=== PATIENT | female | born 1950 | race American Indian/Alaskan Native ===

== ENCOUNTER 2021-06-01 19:34 | Inpatient (IN) | payer OTHER, SELFPAY ==
[2021-06-01 20:06] VITALS: BP 135/75; PULSE 82; RESP 22; TEMP 37.3; O2SAT 92
--- NOTE | 2021-06-01 20:14 | DI.RAD.S_ITS ---
PROCEDURE: XR CHEST 1V INDICATIONS: FEVER,COUGH TECHNIQUE: One view of the chest was acquired. COMPARISON: None. FINDINGS: Surgical changes and devices: None. Lungs and pleura: There are bilateral interstitial opacities in the lung bases. A few indistinct patchy opacities are also noted in the left base. No lobar consolidation. No pleural effusions or pneumothorax. Mediastinum: Mediastinal contours appear normal. Heart size is normal. Bones and chest wall: No suspicious bony lesions. Overlying soft tissues appear unremarkable. IMPRESSION: 1. Bilateral interstitial opacities in the lung bases and patchy opacities in the left base likely representing atypical pneumonia given clinical history. Dictated by: Shun Leach M.D. on 06/01/2021 at 20:58 Approved by: Shun Leach M.D. on 06/01/2021 at 20:59
[2021-06-01 20:47] LABS: BUN Creatinine Ratio 18.9 (6-22); Blood Urea Nitrogen 20 mg/dL (7-17); Calcium 8.4 mg/dL (8.4-10.2); Carbon Dioxide 20 mmol/L (22-32); Chloride 104 mmol/L (98-107); Glucose 263 mg/dL (80-110); HEMOLYSIS < 15 (0-50); Sodium 135 mmol/L (137-145)
[2021-06-01 20:54] LABS: COVID19 -Nasal RAPID POSITIVE (Negative)
[2021-06-01 21:41] LABS: Add Manual Diff / Slide Review NO; Basophils Absolute Auto 0 /uL (0-100); Basophils Percent Auto 0.1 % (0-2); Eosinophils Absolute Auto 0 /uL (0-450); Hematocrit 36.3 % (36-46); Hemoglobin 12.4 g/dL (12.0-16.0); Lymphocytes Absolute Auto 1100 /uL (1100-4500); Mean Corpuscular HGB Conc 34.1 % (30-36); Mean Corpuscular Hemoglobin 29.5 PG (26-34); Mean Corpuscular Volume 86.6 fL (80-100); Monocytes Absolute Auto 400 /uL (0-900); Monocytes Percent Auto 4.6 % (3-14); Neutrophils Absolute Auto 7200 /uL (1500-7000); Neutrophils Percent Auto 82.3 % (50-75); Platelet Count 228 X10^3/uL (150-400); Red Cell Distribution Width 13.8 % (11.6-14.8); White Blood Cell Count 8.8 X10^3/uL (4.5-11.0)
[2021-06-01 21:48] LABS: Creatine Kinase 552 U/L (30-135)
[2021-06-01 22:01] LABS: NT-proBNP (BNP-Adult 18+) 106 pg/mL (<125); Troponin I < 0.012 ng/mL (0.01-0.034)
[2021-06-01 22:03] LABS: CKMB % Relative Index 0.2 % (1.5-5.0); Creatine Kinase MB 1.22 ng/mL (<2.37)
[2021-06-01 23:02] VITALS: BP 140/65; PULSE 80; PULSE 86; RESP 20; RESP 28; O2SAT 94
[2021-06-01 23:30] VITALS: BP 150/70; PULSE 76; RESP 27; O2SAT 93
[2021-06-02] VITALS (20 sets, daily range): BP systolic 119–166; BP diastolic 58–82; PULSE 56–85; RESP 17–32; TEMP 36.4–37.1; O2SAT 85–94; BMI 38.3
--- NOTE | 2021-06-02 01:30 | ED.NAVMDI ---
HPI - Nausea/Vomiting/Diarrhea General Chief complaint: Nausea/Vomiting/Diarrhea Stated complaint: cough, diarrhea Time Seen by Provider: 06/02/21 00:10 Source: patient Mode of arrival: Wheelchair Limitations: no limitations History of Present Illness HPI Narrative: This is a 71-year-old female comes with complaint of cough and diarrhea. Patient has had symptoms for about 6 days with cough. She has been feeling run down. She has had fevers up to 100.4 F. Higher cough has not really been productive. She denies any chest pain. She does feel little bit short of breath. Patient denies any nausea or vomiting currently. No abdominal pain. She has had some loose stools when she is quite active but denies any black or blood. No urinary symptoms. She has not had any swelling in her extremities. Patient does have a history of insulin-dependent diabetes, hypertension, dyslipidemia. Patient denies any prior strokes or heart attacks. She does not have any known prior pulmonary issues or emphysema. She does have some allergies which include codeine and guaifenesin. She does not recall all of them. She does not recall any known COVID contacts or exposures. She is not vaccinated. Related Data Home Medications Medication Instructions Recorded Confirmed amlodipine 5 mg tablet 5 mg PO DAILY 06/02/21 06/02/21 insulin glargine 100 unit/mL (3 30 unit SUBCUT QPM 06/02/21 06/02/21 mL) subcutaneous pen (Lantus Solostar U-100 Insulin) insulin glargine 100 unit/mL (3 35 unit SUBCUT QAM 06/02/21 06/02/21 mL) subcutaneous pen (Lantus Solostar U-100 Insulin) insulin lispro 100 unit/mL 1 sliding scale dose SUBCUT 06/02/21 06/02/21 subcutaneous cartridge (Humalog USEASDIRECTD U-100 Insulin) Previous Rx's Medication Instructions Recorded losartan 100 mg tablet 100 mg PO DAILY #0 tab 06/07/21 Allergies Allergy/AdvReac Type Severity Reaction Status Date / Time alprazolam Allergy Unknown Verified 06/02/21 02:50 aspirin Allergy Unknown Verified 06/02/21 02:50 Review of Systems Review of Systems ROS Unobtainable: All systems reviewed & are unremarkable except as noted in HPI and below Patient History Medical History Diabetes type 2, uncontrolled Essential hypertension Obesity Vaccination hesitancy by patient Surgical History Hx of cholecystectomy Hx of tubal ligation Family History Mother Diabetes mellitus Father Diabetes mellitus Throat cancer Colon cancer Social History household members: family and children Smoking Status: Never smoker alcohol intake: never Smoking Status: Never smoker Substance Use Type: does not use Exam Narrative Exam Narrative: GENERAL: Alert and oriented x three, female in mild distress. HEENT: Head normocephalic, atraumatic, EOMI, pupils reactive, face symmetric, moist mucous membranes NECK: Supple, full range of motion CARDIOVASCULAR: Regular rate and rhythm without murmurs, rubs or gallops. No JVD. No swelling bilateral lower extremities. RESPIRATORY: Breath sounds equal bilaterally, no wheezes rales or rhonchi. Patient does become tachypneic during discussion. ABDOMEN: Soft, nontender. Normoactive bowel sounds all 4 quadrants. No guarding or rebound, rigidity, no mass : No CVA tenderness EXTREMITIES: Normal range of motion, no edema. Neurovascularly intact NEUROLOGICAL: Cranial nerves II through XII grossly intact. Moving all extremities SKIN: Warm, dry, no petechiae, no rashes or lesions. Initial Vital Signs Initial Vital Signs: Vital Signs Temperature 99.2 F 06/01/21 20:06 Pulse Rate 82 06/01/21 20:06 Respiratory Rate 22 06/01/21 20:06 Blood Pressure 135/75 06/01/21 20:06 Pulse Oximetry 92 06/01/21 20:06 Course Orders Ordered: Discontinued Medications Acetaminophen (Acetaminophen 325 Mg Tablet) 650 mg PO Q4HR PRN PRN Reason: Fever/Mild Pain (1-3) Albuterol (Albuterol 2.5 Mg/3 Ml Neb (Adult)) 2.5 mg INH [id number] PRN PRN Reason: Shortness Of Breath Last Admin: 06/02/21 21:18 Dose: 2.5 mg Documented by: ALTAGRACIA Amlodipine Besylate (Amlodipine 5 Mg Tablet) 5 mg PO DAILY JOSÉ MIGUEL Last Admin: 06/04/21 08:17 Dose: 5 mg Documented by: Admin: 06/03/21 09:07 Dose: 5 mg Documented by: Admin: 06/02/21 08:03 Dose: 5 mg Documented by: NAN Amlodipine Besylate (Amlodipine 5 Mg Tablet) 10 mg PO DAILY [facility] Last Admin: 06/07/21 08:27 Dose: 10 mg Documented by: Admin: 06/06/21 09:41 Dose: 10 mg Documented by: Admin: 06/05/21 09:39 Dose: 10 mg Documented by: MAURO Benzocaine (Benzocaine/Menthol 1 Gordon Pkt) 1 each PO Q4HR PRN PRN Reason: Sore Throat Last Admin: 06/03/21 02:20 Dose: 1 each Documented by: ANAYELI Dexamethasone (Dexamethasone 10 Mg/Ml Vial) 6 mg IV NOW ONE Stop: 06/02/21 01:45 Last Admin: 06/02/21 03:10 Dose: 6 mg Documented by: NIXON Dexamethasone (Dexamethasone 10 Mg/Ml Vial) 6 mg IV DAILY [facility] Last Admin: 06/07/21 08:22 Dose: Not Given Documented by: Admin: 06/06/21 09:40 Dose: 6 mg Documented by: Admin: 06/05/21 09:40 Dose: 6 mg Documented by: Admin: 06/04/21 08:17 Dose: 6 mg Documented by: Admin: 06/03/21 09:07 Dose: 6 mg Documented by: Admin: 06/02/21 08:03 Dose: 6 mg Documented by: NAN Dextrose (Dextrose 50 % In Water 25 Gm/50 Ml Syringe) 25 gm IV PRN PRN PRN Reason: Hypoglycemia Enoxaparin Sodium (Enoxaparin 40 Mg/0.4 Ml Syringe) 40 mg SUBCUT DAILY [facility] Last Admin: 06/07/21 08:27 Dose: 40 mg Documented by: Admin: 06/06/21 09:41 Dose: 40 mg Documented by: Admin: 06/05/21 09:39 Dose: 40 mg Documented by: Admin: 06/04/21 08:17 Dose: 40 mg Documented by: Admin: 06/03/21 09:06 Dose: 40 mg Documented by: Admin: 06/02/21 08:03 Dose: 40 mg Documented by: NAN Guaifenesin (Guaifenesin Er 600 Mg Tab) 600 mg PO Q12HR PRN PRN Reason: Cough Last Admin: 06/03/21 09:07 Dose: 600 mg Documented by: Admin: 06/02/21 08:03 Dose: 600 mg Documented by: NAN Remdesivir 200 mg/ Sodium (Chloride) 250 mls @ 250 mls/hr IV NOW ONE Stop: 06/02/21 01:45 Last Infusion: 06/02/21 07:30 Dose: 0 mls/hr Documented by: Admin: 06/02/21 05:07 Dose: 250 mls/hr Documented by: NIXON Remdesivir 100 mg/ Sodium (Chloride) 250 mls @ 250 mls/hr IV DAILY JOSÉ MIGUEL Stop: 06/07/21 08:59 Last Infusion: 06/06/21 18:19 Dose: 0 mls/hr Documented by: Admin: 06/06/21 09:50 Dose: 150 mls/hr Documented by: Infusion: 06/06/21 09:42 Dose: 0 mls/hr Documented by: Admin: 06/05/21 09:40 Dose: 250 mls/hr Documented by: Infusion: 06/04/21 09:27 Dose: 0 mls/hr Documented by: Admin: 06/04/21 08:17 Dose: 250 mls/hr Documented by: Infusion: 06/03/21 10:44 Dose: 0 mls/hr Documented by: Admin: 06/03/21 09:08 Dose: 250 mls/hr Documented by: MARY Azithromycin 500 mg/ Dextrose 250 mls @ 250 mls/hr IV NOW ONE Stop: 06/02/21 02:19 Last Infusion: 06/02/21 05:06 Dose: 0 mls/hr Documented by: Admin: 06/02/21 03:57 Dose: 250 mls/hr Documented by: NIXON Sodium Chloride (Normal Saline 0.9%) 250 mls @ 21 mls/hr IV Q24H PRN PRN Reason: Flush Last Infusion: 06/04/21 11:27 Dose: 0 mls/hr Documented by: Infusion: 06/04/21 08:33 Dose: 21 mls/hr Documented by: Infusion: 06/03/21 10:46 Dose: 0 mls/hr Documented by: Admin: 06/03/21 09:30 Dose: 21 mls/hr Documented by: MARY Insulin Glargine (Insulin Glargine 100 Unit/Ml 3ml Pen) 35 unit SUBCUT DAILY [facility] Last Admin: 06/02/21 06:47 Dose: 35 unit Documented by: NIXON Cosigned by: MARY Insulin Glargine (Insulin Glargine 100 Unit/Ml 3ml Pen) 30 unit SUBCUT QPM JOSÉ MIGUEL Insulin Glargine (Insulin Glargine 100 Unit/Ml 3ml Pen) 35 unit SUBCUT QPM [facility] Last Admin: 06/02/21 18:04 Dose: Not Given Documented by: MERVIN Insulin Glargine (Insulin Glargine 100 Unit/Ml 3ml Pen) 40 unit SUBCUT DAILY [facility] Insulin Glargine (Insulin Glargine 100 Unit/Ml 3ml Pen) 35 unit SUBCUT BEDTIME JOSÉ MIGUEL Insulin Glargine (Insulin Glargine 100 Unit/Ml 3ml Pen) 45 unit SUBCUT DAILY [facility] Last Admin: 06/03/21 09:05 Dose: 45 unit Documented by: MARY Cosigned by: MIMA Insulin Glargine (Insulin Glargine 100 Unit/Ml 3ml Pen) 40 unit SUBCUT BEDTIME [facility] Last Admin: 06/02/21 20:43 Dose: 40 unit Documented by: MERVIN Cosigned by: HUAN Insulin Glargine (Insulin Glargine 100 Unit/Ml 3ml Pen) 50 unit SUBCUT BID [facility] Last Admin: 06/04/21 08:18 Dose: 50 unit Documented by: MARY Cosigned by: NIXON Admin: 06/03/21 20:26 Dose: 50 unit Documented by: BROOKS Cosigned by: ILDEFONSO Insulin Glargine (Insulin Glargine 100 Unit/Ml 3ml Pen) 50 unit SUBCUT BID [facility] Last Admin: 06/05/21 09:36 Dose: 50 unit Documented by: MAURO Cosigned by: NIXON Admin: 06/04/21 20:21 Dose: 50 unit Documented by: HUAN Cosigned by: BROOKS Insulin Glargine (Insulin Glargine 100 Unit/Ml 3ml Pen) 60 unit SUBCUT BID JOSÉ MIGUEL Last Admin: 06/07/21 08:28 Dose: 60 unit Documented by: MARY Cosigned by: AUDRA Admin: 06/06/21 21:06 Dose: 60 unit Documented by: HILARIA Cosigned by: MARCOS Admin: 06/06/21 09:33 Dose: 60 unit Documented by: MAURO Cosigned by: NIXON Admin: 06/05/21 20:34 Dose: 60 unit Documented by: BROOKS Cosigned by: MARCOS Insulin Human Lispro (Insulin Lispro 100 Unit/Ml 3ml Vial) 0 unit SUBCUT ACHS [facility]; Protocol Last Admin: 06/03/21 12:41 Dose: 12 unit Documented by: MARY Cosigned by: MIMA Admin: 06/03/21 09:04 Dose: 12 unit Documented by: MARY Cosigned by: MIMA Admin: 06/02/21 20:42 Dose: 10 unit Documented by: MERVIN Cosigned by: HUAN Admin: 06/02/21 17:12 Dose: 12 unit Documented by: MERVIN Cosigned by: HUAN Admin: 06/02/21 11:47 Dose: 12 unit Documented by: NAN Cosigned by: BUTCH Admin: 06/02/21 08:04 Dose: 7 unit Documented by: NAN Lawrence by: BUTCH Insulin Human Lispro (Insulin Lispro 100 Unit/Ml 3ml Vial) 5 unit SUBCUT NOW ONE Stop: 06/02/21 11:22 Last Admin: 06/02/21 11:47 Dose: 5 unit Documented by: NAN Alexanderigned by: BUTCH Insulin Human Lispro (Insulin Lispro 100 Unit/Ml 3ml Vial) 0 unit SUBCUT ACHS [facility] Last Admin: 06/04/21 17:08 Dose: 8 unit Documented by: HUAN Cosigned by: BROOKS Admin: 06/04/21 12:00 Dose: 8 unit Documented by: MARY Cosigned by: NIXON Admin: 06/04/21 08:33 Dose: 8 unit Documented by: MARY Cosigned by: NIXON Admin: 06/03/21 20:31 Dose: Not Given Documented by: Admin: 06/03/21 16:39 Dose: 8 unit Documented by: BROOKS Cosmary by: JOSE Insulin Human Lispro (Insulin Lispro 100 Unit/Ml 3ml Vial) 0 unit SUBCUT AC JOSÉ MIGUEL; Protocol Last Admin: 06/07/21 12:51 Dose: 2 unit Documented by: MARY Cosigned by: NIXON Admin: 06/07/21 08:27 Dose: 2 unit Documented by: MARY Alexanderigned by: AUDRA Admin: 06/06/21 17:02 Dose: 12 unit Documented by: HILARIA Cosigned by: BROOKS Admin: 06/06/21 12:26 Dose: 7 unit Documented by: MAURO Cosigned by: NIXON Admin: 06/06/21 09:36 Dose: 4 unit Documented by: MAURO Cosigned by: NIXNO Admin: 06/05/21 16:48 Dose: 12 unit Documented by: BROOKS Cosigned by: MARCOS Admin: 06/05/21 12:22 Dose: 10 unit Documented by: MAURO Cosigned by: NIXON Admin: 06/05/21 09:36 Dose: 7 unit Documented by: MAURO Lawrence by: NIXON Insulin Human Lispro (Insulin Lispro 100 Unit/Ml 3ml Vial) 6 unit SUBCUT AC [facility] Last Admin: 06/07/21 12:51 Dose: 6 unit Documented by: MARY Cosigned by: NIXON Admin: 06/07/21 08:28 Dose: 6 unit Documented by: MARY Alexanderigned by: AUDRA Admin: 06/06/21 17:03 Dose: 6 unit Documented by: HILARIA Cosigned by: BROOKS Insulin Human NPH (Insulin Nph 100 Unit/Ml Vial) 5 unit SUBCUT TIDWM [facility] Last Admin: 06/02/21 08:03 Dose: Not Given Documented by: NAN Losartan Potassium (Losartan 50 Mg Tablet) 100 mg PO BID [facility] Losartan Potassium (Losartan 50 Mg Tablet) 100 mg PO DAILY [facility] Last Admin: 06/07/21 08:27 Dose: 100 mg Documented by: Admin: 06/06/21 09:41 Dose: 100 mg Documented by: Admin: 06/05/21 09:39 Dose: 100 mg Documented by: Admin: 06/04/21 08:18 Dose: 100 mg Documented by: MARY Ondansetron HCl (Ondansetron 4 Mg/2 Ml Inj) 4 mg IV Q6HR PRN PRN Reason: Nausea And Vomiting Sodium Chloride (Sodium Chloride 0.9% Flush) 10 ml IV PRN PRN PRN Reason: Flush Sodium Chloride (Sodium Chloride 0.9% Flush) 10 ml IV BID JOSÉ MIGUEL [facility] Admin: 06/07/21 08:22 Dose: Not Given Documented by: Admin: 06/06/21 21:08 Dose: Not Given Documented by: Admin: 06/06/21 09:41 Dose: 10 ml Documented by: Admin: 06/05/21 20:35 Dose: 10 ml Documented by: Admin: 06/05/21 09:40 Dose: 10 ml Documented by: Admin: 06/04/21 20:20 Dose: 10 ml Documented by: Admin: 06/04/21 08:17 Dose: 10 ml Documented by: Admin: 06/03/21 20:28 Dose: 10 ml Documented by: Admin: 06/03/21 09:08 Dose: 10 ml Documented by: Admin: 06/02/21 20:45 Dose: 10 ml Documented by: Admin: 06/02/21 08:05 Dose: 10 ml Documented by: NAN Vital Signs Vital signs: Vital Signs - 8 hr 06/01/21 20:06 06/01/21 23:02 Temperature 99.2 F Pulse Rate 82 80 Respiratory Rate 22 20 Blood Pressure 135/75 140/65 Pulse Oximetry 92 94 MDM - Nausea/Vomiting/Diarrhea Lab Data Result diagrams: 06/03/21 06:43 06/07/21 04:42 Labs: Lab Results 06/01/21 06/01/21 06/01/21 Range/Units 20:30 20:30 20:30 WBC 8.8 (4.5-11.0) X10^3/uL RBC 4.20 (4.0-5.2) X10^6/uL Hgb 12.4 (12.0-16.0) g/dL Hct 36.3 (36-46) % MCV 86.6 (80-100) fL MCH 29.5 (26-34) PG MCHC 34.1 (30-36) % RDW 13.8 (11.6-14.8) % Plt Count 228 (150-400) X10^3/uL Neut % (Auto) 82.3 H (50-75) % Lymph % (Auto) 13.0 L (25-40) % [place] % (Auto) 4.6 (3-14) % Eos % (Auto) 0.0 L (2-4) % Baso % (Auto) 0.1 (0-2) % Neut # (Auto) 7200 H (2578-2183) /uL Lymph # (Auto) 1100 (1660-6833) /uL [place] # (Auto) 400 (0-900) /uL Eos # (Auto) 0 (0-450) /uL Baso # (Auto) 0 (0-100) /uL Sodium 135 L (137-145) mmol/L Potassium 4.0 (3.4-5.1) mmol/L Chloride 104 (98-107) mmol/L Carbon Dioxide 20 L (22-32) mmol/L BUN 20 H (7-17) mg/dL Creatinine 1.06 H (0.52-1.04) mg/dL Estimated GFR 51.0 L (>60) mL/min BUN/Creatinine Ratio 18.9 (6-22) Glucose 263 H (80-110) mg/dL Hemoglobin A1c (4.0-6.0) % Calcium 8.4 (8.4-10.2) mg/dL Total Creatine Kinase 552 H (30-135) U/L CK-MB (CK-2) 1.22 (<2.37) ng/mL CK-MB (CK-2) Rel Index 0.2 L (1.5-5.0) % Troponin I < 0.012 (0.01-0.034) ng/mL NT-Pro-B Natriuret Pep 106 (<125) pg/mL Procalcitonin (<0.5) ng/mL SARS-CoV-2 (PCR) (Negative) 06/01/21 06/01/21 06/01/21 Range/Units 20:30 20:35 20:45 WBC (4.5-11.0) X10^3/uL RBC (4.0-5.2) X10^6/uL Hgb (12.0-16.0) g/dL Hct (36-46) % MCV (80-100) fL MCH (26-34) PG MCHC (30-36) % RDW (11.6-14.8) % Plt Count (150-400) X10^3/uL Neut % (Auto) (50-75) % Lymph % (Auto) (25-40) % [place] % (Auto) (3-14) % Eos % (Auto) (2-4) % Baso % (Auto) (0-2) % Neut # (Auto) (6903-0058) /uL Lymph # (Auto) (5479-8691) /uL [place] # (Auto) (0-900) /uL Eos # (Auto) (0-450) /uL Baso # (Auto) (0-100) /uL Sodium (137-145) mmol/L Potassium (3.4-5.1) mmol/L Chloride (98-107) mmol/L Carbon Dioxide (22-32) mmol/L BUN (7-17) mg/dL Creatinine (0.52-1.04) mg/dL Estimated GFR (>60) mL/min BUN/Creatinine Ratio (6-22) Glucose (80-110) mg/dL Hemoglobin A1c 9.4 H (4.0-6.0) % Calcium (8.4-10.2) mg/dL Total Creatine Kinase (30-135) U/L CK-MB (CK-2) (<2.37) ng/mL CK-MB (CK-2) Rel Index (1.5-5.0) % Troponin I (0.01-0.034) ng/mL NT-Pro-B Natriuret Pep (<125) pg/mL Procalcitonin 0.14 (<0.5) ng/mL SARS-CoV-2 (PCR) Positive H (Negative) Imaging Data Chest x-ray: Radiologist's Impression: [address] [id number] ReportSigned Patient: Shonda West MMR#: [id number]: [id number]:[id number]/Sex: 71 / FDate of Service: 06/01/21Loc: EDAccession Number: [id number] Procedure: XR chest 1V Ordering Provider: Ana Bal D.O. PROCEDURE: XR CHEST 1V INDICATIONS: FEVER,COUGH TECHNIQUE: One view of the chest was acquired. COMPARISON: None. FINDINGS: Surgical changes and devices: None. Lungs and pleura: There are bilateral interstitial opacities in the lung bases. A few indistinct patchy opacities are also noted in the left base. No lobar consolidation. No pleural effusions or pneumothorax. Mediastinum: Mediastinal contours appear normal. Heart size is normal. Bones and chest wall: No suspicious bony lesions. Overlying soft tissues appear unremarkable. IMPRESSION: 1. Bilateral interstitial opacities in the lung bases and patchy opacities in the left base likely representing atypical pneumonia given clinical history. Dictated by: Shun Leach M.D. on 06/01/2021 at 20:58 Approved by: Shun Leach M.D. on 06/01/2021 at 20:59 ECG Data Attestation: I personally reviewed and interpreted this ECG as follows: Prior ECG tracings: not available for review MDM Narrative Medical decision making narrative: This is a 71-year-old female with multiple comorbidities who is COVID positive with changes on chest x-ray and is requiring oxygen at 3 L nasal cannula. Case discussed with hospitalist, remdesivir and dexamethasone ordered. Patient does appear somewhat dry on exam but hospitalist request that we hold fluids at this time which is typical with COVID patients. I did discuss patient's pulsed status. She has not given this much thought in the past she is unsure if she would wish for full code, limited intervention or somewhere in between. She is going to contemplate this and discuss with her family. Discussed with hospitalist who accepts. Discharge Plan Departure Patient Disposition: Admitted As Inpatient Clinical Impression: Pneumonia due to COVID-19 virus, Hypoxemia Admit Date/Time: 06/02/21 02:04 Admit Provider: Louise Camargo
[2021-06-02 02:45] LABS: Hemoglobin A1C% w Est Avg Glu 9.4 % (4.0-6.0)
[2021-06-02 02:52] LABS: HCO3 ABG 21 mmol/L (22-26); Oxygen Saturation ABG 94 % (95-100); PCO2 ABG 29.8 mmHg (35-45); PO2 ABG 65 mmHg (80-100); TCO2 ABG 22 mmol/L (21-31); pH ABG 7.46 (7.35-7.45)
[2021-06-02 02:53] LABS: Fractionated Inspired Oxygen 32
[2021-06-02 02:56] LABS: Procalcitonin 0.14 ng/mL (<0.5)
--- NOTE | 2021-06-02 03:08 | P.HP_ITS ---
History of Present Illness History of Present Illness Date Patient Seen: 06/02/21 Time Patient Seen: 03:11 Chief complaint: cough, diarrhea Narrative: Shonda West is a 71 y.o. female with diabetes, hypertension, who initially presented to the ED for diarrhea. She states it started 6 days ago, started to consume Pepto-Bismal and stated her stool turned black. Per nursing's review of systems with the patient, she told them she had been short of breath prompting a COVID PCR which turned out to be positive. She denes fever, sweats or chills, she does endorse cough and shortness of breath. She states she masks whenever she is outsdide of her home, has not taken the vaccine because she developed shingles and Garcia's Palsey after having an influenza vaccine last year. She does endorse a cough, denies chest pain, abdominal pain, dysurea or constipation. In the ED, she was administered oxygen, and is currently on 3 liters with her oxygen dropping as far as 85% and currently is 92%. Chest xray report indicated Bilateral interstitial opacities in the lung bases and patchy opacities in the left base likely representing atypical pneumonia given clinical history.. On presentation to the ED, her temp was 99.2, currently is 98.7, blood pressure is 156/82, heart rate 80, respiratory rate 22, she weighs 90.2 kg with a BMI of 30.3. WBC is unremarkable, she has a platelet count of 228, shows a normal pH of 7.46 but has a PO2 of 65 and ABG O2 oxygen saturation 94%. Sodium is 135, potassium 4.0, chloride 104, bicarb 20, BUN 20, creatinine 1.06, with a GFR of 51, glucose is 263, hemoglobin A1c is 9.4, calcium 8.4, total creatinine kinase is 552, troponin, procalcitonin, and proBNP are all within normal limits. COVID 19 PCR is positive. Patient History Medical History (Updated 06/02/21 @ 04:22 by BELGICA Connell) Diabetes type 2, uncontrolled Essential hypertension Obesity Vaccination hesitancy by patient Surgical History (Updated 06/02/21 @ 04:21 by BELGICA Connell) Hx of cholecystectomy Hx of tubal ligation Family & Social History Family History Mother Diabetes mellitus Father Diabetes mellitus Throat cancer Colon cancer Social History: household members family,children Prior Living Arrangements House Safety & Behavioral: Feels Safe in Current Yes Environment Suicidal Ideation Description None Suicide Plan Description No Plan Tobacco & Substance use: Smoking Status Never smoker alcohol intake never Substance Use Type does not use Meds Home Medications and Allergies Home Medications Medication Instructions Recorded Confirmed Type amlodipine 5 mg tablet 5 mg PO DAILY 06/02/21 06/02/21 History insulin glargine 100 unit/mL (3 30 unit SUBCUT QPM 06/02/21 06/02/21 History mL) subcutaneous pen (Lantus Solostar U-100 Insulin) insulin glargine 100 unit/mL (3 35 unit SUBCUT QAM 06/02/21 06/02/21 History mL) subcutaneous pen (Lantus Solostar U-100 Insulin) insulin lispro 100 unit/mL 1 sliding scale dose SUBCUT 06/02/21 06/02/21 History subcutaneous cartridge (Humalog USEASDIRECTD U-100 Insulin) losartan 100 mg tablet 100 mg PO BID 06/02/21 06/02/21 History Allergies Allergy/AdvReac Type Severity Reaction Status Date / Time alprazolam Allergy Unknown Verified 06/02/21 02:50 aspirin Allergy Unknown Verified 06/02/21 02:50 Review of Systems Review of Systems ROS: Yes All systems reviewed with the patient and are negative except as otherwise documented Exam Vital Signs (past 8 hours): - 06/01/21 20:06 06/01/21 23:02 06/01/21 23:30 Temperature 99.2 F Pulse Rate 82 86 76 Respiratory Rate 22 28 H 27 H Blood Pressure 135/75 140/65 150/70 H Pulse Oximetry 92 94 93 06/02/21 00:00 06/02/21 00:47 06/02/21 00:49 Temperature Pulse Rate 78 85 Respiratory Rate 27 H 32 H Blood Pressure 151/72 H 166/72 H Pulse Oximetry 92 85 L 90 L 06/02/21 01:00 06/02/21 01:30 06/02/21 02:00 Temperature Pulse Rate 77 77 80 Respiratory Rate 31 H 28 H 30 H Blood Pressure 156/70 H Pulse Oximetry 89 L 92 92 06/02/21 02:15 Temperature 98.7 F Pulse Rate 80 Respiratory Rate 22 Blood Pressure 156/82 H Pulse Oximetry 92 Oxygen Delivery Method Nasal Cannula Oxygen Flow Rate 3 Narrative Exam Narrative: Gen: Alert, oriented, obese 71 y.o. female, sleeping HEENT: normocephalic, atraumatic, conjunctiva clear, sclera non-icteric, oral mucosa pink and moist Neck: supple, full ROM, no JVD, trachea is midline Resp: Mildly labored breathing when speaking, Lungs CTA, CV: RRR, no murmur or rubs Abd: soft, non-tender, normoactive BTs Skin: no lesions or rashes, dry and intact Neuro: Alert and oriented X 4 w/no focal deficits. Speech clear and coherent. Extremities: moves all 4 extremities, is ambulatory, negative Jeramie?s sign Psyche: normal mood and affect. Objective Labs Result Diagrams: 06/01/21 20:30 06/01/21 20:30 Labs: Laboratory Results - last 24 hr 06/01/21 06/01/21 06/01/21 20:30 20:30 20:30 WBC 8.8 RBC 4.20 Hgb 12.4 Hct 36.3 MCV 86.6 MCH 29.5 MCHC 34.1 RDW 13.8 Plt Count 228 Neut % (Auto) 82.3 H Lymph % (Auto) 13.0 L [place] % (Auto) 4.6 Eos % (Auto) 0.0 L Baso % (Auto) 0.1 Neut # (Auto) 7200 H Lymph # (Auto) 1100 [place] # (Auto) 400 Eos # (Auto) 0 Baso # (Auto) 0 ABG pH ABG pCO2 ABG pO2 ABG HCO3 ABG Total CO2 ABG O2 Saturation ABG Base Excess FiO2 Sodium 135 L Potassium 4.0 Chloride 104 Carbon Dioxide 20 L BUN 20 H Creatinine 1.06 H Estimated GFR 51.0 L BUN/Creatinine Ratio 18.9 Glucose 263 H Hemoglobin A1c Calcium 8.4 Total Creatine Kinase 552 H CK-MB (CK-2) 1.22 CK-MB (CK-2) Rel Index 0.2 L Troponin I < 0.012 NT-Pro-B Natriuret Pep 106 Procalcitonin SARS-CoV-2 (PCR) 06/01/21 06/01/21 06/01/21 20:30 20:35 20:45 WBC RBC Hgb Hct MCV MCH MCHC RDW Plt Count Neut % (Auto) Lymph % (Auto) [place] % (Auto) Eos % (Auto) Baso % (Auto) Neut # (Auto) Lymph # (Auto) [place] # (Auto) Eos # (Auto) Baso # (Auto) ABG pH ABG pCO2 ABG pO2 ABG HCO3 ABG Total CO2 ABG O2 Saturation ABG Base Excess FiO2 Sodium Potassium Chloride Carbon Dioxide BUN Creatinine Estimated GFR BUN/Creatinine Ratio Glucose Hemoglobin A1c 9.4 H Calcium Total Creatine Kinase CK-MB (CK-2) CK-MB (CK-2) Rel Index Troponin I NT-Pro-B Natriuret Pep Procalcitonin 0.14 SARS-CoV-2 (PCR) Positive H 06/02/21 02:20 WBC RBC Hgb Hct MCV MCH MCHC RDW Plt Count Neut % (Auto) Lymph % (Auto) [place] % (Auto) Eos % (Auto) Baso % (Auto) Neut # (Auto) Lymph # (Auto) [place] # (Auto) Eos # (Auto) Baso # (Auto) ABG pH 7.46 H ABG pCO2 29.8 L ABG pO2 65 L ABG HCO3 21 L ABG Total CO2 22 ABG O2 Saturation 94 L ABG Base Excess -3.0 L FiO2 32 Sodium Potassium Chloride Carbon Dioxide BUN Creatinine Estimated GFR BUN/Creatinine Ratio Glucose Hemoglobin A1c Calcium Total Creatine Kinase CK-MB (CK-2) CK-MB (CK-2) Rel Index Troponin I NT-Pro-B Natriuret Pep Procalcitonin SARS-CoV-2 (PCR) Assessment & Plan Assessment & Plan narrative: Shonda West is a 71 y.o. female with diabetes type 2, hypertension, essential hypertension presented for diarrhea was found in the ED to have COVID-19, mildly hypoxic on admission will be admitted for further treatment and management of COVID-19 and initial workup of her complaint of diarrhea. 1. Mild Hypoxia, acute in the setting of COVID-19 Pneumonia, present on admission * She was given IV Remdesvir 200 mg in the ED and IV dexamethasone 6 mg * She will be initiated on Remdesvir 100 mg daily for 4 more days and IV dexamethasone will also be continued. * She will remain on supplemental O2 until her saturations reach a goal of 97% * She is housed in a unit room, and if she requires aerosolizing treatments, will require a negative pressure room. * She is initiated on IV Azithromycin to prevent development of a bacterial pneumonia superimposed on the COVID-19 virus 2. Diarrhea, acute * C. difficile and stool O and P ordered and pending * Room will need to be contact precautions 3. Diabetes type 2 poor control with an A1c of 9.4 * Patient uses basal insulin glargine 35 units in the am and 30 units in the pm and this will be continued * Medium dose correctional insulin * I will add 5 units of prandial insulin as her blood sugars are likely to be elevated above baseline due to dexamethasone * Carb control diet 4. Essential hypertension, appears to be poorly controlled * Patient normally takes amlodipine 5 mg daily. * Patient is written for losartan 100 mg bid by her PCP and is a recent Rx. This will need to be confirmed and have requested Pharmacy consult regarding this. VTE prophylaxis: Wells risk score: 4.5 Enoxaparin 40 mg subQ daily Consults: none Patient is admitted under inpatient status with expected length of stay greater than 2 midnights due to severity of presenting symptoms, risk of adverse event, and complexity of treatment plan. FEN: saline lock, carb controlled diet, CMP and magnesium in the am. Dispo: Unknown at this time Code Status: Full Code as discussed with patient daughter Meghan Blanco is her surrogate and POA COVID-19 COVID-19 status: Positive Result date/Date tested (Pos, Neg/Pending): 06/02/21 Scores Wells' Criteria for PE Clinical signs and symptoms of DVT: Yes PE is #1 Dx or equally likely: No Heart rate > 100: Yes Immobilization at least 3 days or surg in previous 4 weeks: No History of PE or DVT: No Hemoptysis: No Malignancy w/Treatment within 6 months or palliative: No Wells' PE Score total: 4.5 Quality VTE Deep Vein Thrombosis/Pulmonary Embolism Present on Admission: No MIPS - Admit I confirm the patient?s Advance Care Plan is present, Code status is documented, Surrogate decision maker is in patient?s record [If Yes, STOP here]: Yes
[2021-06-02] MEDS: DEXAMETHASONE 10 MG/ML VIAL 6 MG IV ×2 (03:10→08:03)
--- NOTE | 2021-06-02 03:30 | PC.NURSE ---
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
[2021-06-02] MEDS: AZITHROMYCIN 500 MG in DEXTROSE 5% IN WATER 250 ML IV (03:57)
[2021-06-02 04:39] LABS: Clostridium Difficile Tox PCR Negative for C. diff (Negative)
[2021-06-02] MEDS: REMDESIVIR 200 MG in SODIUM CHLORIDE 0.9% 210 ML 250 ML IV (05:07)
--- NOTE | 2021-06-02 06:34 | PC.NURSE ---
Addendum entered by Kassandra Fraire R.N. 06/02/21 07:11: Up to chair @ 0700, reporting feeling much less SOB after good sleep. IV SL. CBG 337, lantus given. Original Note: Assumed care of Pt @ 0300, continues with nonproductive cough, 3L o2, with significant SOB with exertion. Recovers without incident, discussed used of BSC vs ambulation to BR to conserve effort and allow for some reserve. Pt is having watery stools, bried in place for incont. miles with forceful coughing Afebrile.
[2021-06-02] MEDS: INSULIN GLARGINE 100 UNIT/ML 3ML PEN 35 UNIT SUBCUT (06:47)
[2021-06-02 07:20] LABS: Add Manual Diff / Slide Review NO; Basophils Absolute Auto 0 /uL (0-100); Basophils Percent Auto 0.2 % (0-2); Eosinophils Absolute Auto 0 /uL (0-450); Hematocrit 32.8 % (36-46); Hemoglobin 11.2 g/dL (12.0-16.0); Lymphocytes Absolute Auto 800 /uL (1100-4500); Lymphocytes Percent Auto 9.4 % (25-40); Mean Corpuscular HGB Conc 34.1 % (30-36); Mean Corpuscular Hemoglobin 29.4 PG (26-34); Mean Corpuscular Volume 86.2 fL (80-100); Monocytes Absolute Auto 300 /uL (0-900); Neutrophils Absolute Auto 7200 /uL (1500-7000); Neutrophils Percent Auto 86.4 % (50-75); Platelet Count 223 X10^3/uL (150-400); Red Blood Cell Count 3.81 X10^6/uL (4.0-5.2); White Blood Cell Count 8.3 X10^3/uL (4.5-11.0)
[2021-06-02 07:38] LABS: Alanine Aminotransferase 33 IU/L (<35); Albumin 3.4 g/dL (3.5-5.0); Alkaline Phosphatase 63 U/L (38-126); Aspartate Aminotransferase 63 IU/L (14-36); BUN Creatinine Ratio 22.1 (6-22); Bilirubin Total 0.6 mg/dL (0.2-1.3); Bilirubin Unconjugated 0.3 mg/dL (0.0-1.1); Blood Urea Nitrogen 21 mg/dL (7-17); Carbon Dioxide 19 mmol/L (22-32); Chloride 103 mmol/L (98-107); Estimated Glomerular Filt Rate 57.8 mL/min (>60); Globulin 3.3 g/dL (1.7-4.1); Glucose 352 mg/dL (80-110); HEMOLYSIS < 15 (0-50); Potassium 3.9 mmol/L (3.4-5.1); Sodium 132 mmol/L (137-145); Total Protein 6.7 g/dL (6.3-8.2)
[2021-06-02] MEDS: AMLODIPINE 5 MG TABLET PO (08:03)
[2021-06-02] MEDS: ENOXAPARIN 40 MG/0.4 ML SYRINGE SUBCUT (08:03)
[2021-06-02] MEDS: guaiFENesin ER 600 MG TAB PO (08:03)
[2021-06-02] MEDS: INSULIN LISPRO 100 UNIT/ML 3ML VIAL SUBCUT ×5 (08:04→20:42)
[2021-06-02] MEDS: SODIUM CHLORIDE 0.9% FLUSH 10 ML IV ×2 (08:05→20:45)
--- NOTE | 2021-06-02 10:17 | PC.NURSE ---
Addendum entered by Pari Whipple R.N. 06/02/21 11:28: Patients blood glucose 418, Dr. Medeiros aware,orders received. Original Note: Patient alert, oriented denies pain, c/o shortness of breath with activity. LS diminished throughout and tight. Sats on 5L 93%, patient has non productive cough. Patient assisted back to bed and is proning.
--- NOTE | 2021-06-02 13:17 | CM.DANOTE ---
Patient is a 71 yo female who was admitted on 06/02/21 today for Cough/Diarrhea. Pt has [facility] for insurance and her PCP is not listed. EMR was reviewed. Per MD, pt admitted with COVID pneumonia and not vaccinated for COVID and currently on 3L oxygen and not stable for d/c yet today. Per RN, pt fatigues easily and increased to 5L O2 but was able to shower with staff assist and has been proning. SW called pt on room phone due to COVID + precautions and explained role. Pt confirms that she lives at home with her adult Dtr Meghan in [place] and is independent with ADL's at baseline and does not use DME for ambulation and drives herself. Pt confirms with COVID and diarrhea, she has needed walker for getting to the bathroom. Pt denies anyone else in the home but states Dtr is available to assist and provide transport home and states her Dtr is not feeling sick or showing any signs of COVID at this time. Pt does not anticipate any needs at d/c and preference is to d/c home with Dtr when medically stable. Plan: SW to follow for possible d/c home with Dtr assist when stable pending progress, mobility, and oxygen needs. SW to follow for any other identified d/c planning needs. YESENIA Tomas Discharge Planning/Care Management CM Discharge Assessment Start: 06/02/21 13:12 Freq: Status: Active Protocol: Document 06/02/21 13:12 BF (Rec: 06/02/21 13:14 BF [id number]) Discharge Planning Assessment Assigned Club Car Attendant YESENIA Bettencourt DPOA/Assigned Designee Name Dtfareed Christianson Contact Information [phone] Advance Directives? No Advance Directives on File No History Provided By Patient,Medical Record Has Patient been admitted in last 30 No days? Prior Living Arrangements House Household Members family,children Type of transporation used prior to Drives own vehicle admit Independent with ADL's Yes Is patient alert and oriented? Yes Caregiver for Another No DME Already Rented / Owned FWW / Walker Comment Pending pt progress to determine d/c needs Barriers to Discharge No Discharge Plan Home Transportation Arrangement Dtr can likely provide transport at d/c Additional Comment Pending pt's progress and possible PT eval when appropriate if below baseline Review Status In Process Please Provide Date Initial DC 06/02/21 Assessment Was Performed Next Review Type Continued Stay Review
[2021-06-02] MEDS: INSULIN GLARGINE 100 UNIT/ML 3ML PEN 40 UNIT SUBCUT (20:43)
[2021-06-02] MEDS: ALBUTEROL 2.5 MG/3 ML NEB (ADULT) INH (21:18)
[2021-06-03] VITALS (8 sets, daily range): BP systolic 129–159; BP diastolic 62–67; PULSE 51–63; RESP 17–20; TEMP 36.2–36.4; O2SAT 89–96
[2021-06-03] MEDS: BENZOCAINE/MENTHOL 1 LOZ PKT 1 EACH PO (02:20)
--- NOTE | 2021-06-03 06:05 | PC.NURSE ---
Print Room Worker Note-Patient slept on Lt side from midnight-0200, SpO2 90-96%, slept on Rt side [id number], sats same. For the rest of the night, she wanted to be on her back with HOB 30 degrees, SpO2 88-93%, RR 20s, short of breath while ambulating to BR, crackles in bases. Cepacol given for cough. SB 50s. Loose stools decreasing.
[2021-06-03 06:53] LABS: Hematocrit 32.7 % (36-46); Mean Corpuscular HGB Conc 33.5 % (30-36); Mean Corpuscular Hemoglobin 28.8 PG (26-34); Platelet Count 270 X10^3/uL (150-400); Red Blood Cell Count 3.81 X10^6/uL (4.0-5.2); Red Cell Distribution Width 13.8 % (11.6-14.8); White Blood Cell Count 8.5 X10^3/uL (4.5-11.0)
[2021-06-03 07:05] LABS: Alanine Aminotransferase 37 IU/L (<35); Albumin Globulin Ratio 0.9 (1.0-2.8); Alkaline Phosphatase 69 U/L (38-126); Aspartate Aminotransferase 57 IU/L (14-36); BUN Creatinine Ratio 30.5 (6-22); Bilirubin Total 0.5 mg/dL (0.2-1.3); Bilirubin Unconjugated 0.2 mg/dL (0.0-1.1); Blood Urea Nitrogen 25 mg/dL (7-17); Calcium 8.2 mg/dL (8.4-10.2); Carbon Dioxide 21 mmol/L (22-32); Chloride 102 mmol/L (98-107); Estimated Glomerular Filt Rate > 60.0 mL/min (>60); Globulin 3.2 g/dL (1.7-4.1); Glucose 402 mg/dL (80-110); HEMOLYSIS < 15 (0-50); Potassium 3.6 mmol/L (3.4-5.1); Sodium 131 mmol/L (137-145); Total Protein 6.2 g/dL (6.3-8.2)
[2021-06-03] MEDS: INSULIN LISPRO 100 UNIT/ML 3ML VIAL SUBCUT ×3 (09:04→16:39)
[2021-06-03] MEDS: INSULIN GLARGINE 100 UNIT/ML 3ML PEN 45 UNIT SUBCUT (09:05)
[2021-06-03] MEDS: ENOXAPARIN 40 MG/0.4 ML SYRINGE SUBCUT (09:06)
[2021-06-03] MEDS: AMLODIPINE 5 MG TABLET PO (09:07)
[2021-06-03] MEDS: guaiFENesin ER 600 MG TAB PO (09:07)
[2021-06-03] MEDS: DEXAMETHASONE 10 MG/ML VIAL 6 MG IV (09:07)
[2021-06-03] MEDS: REMDESIVIR 100 MG in SODIUM CHLORIDE 0.9% 230 ML 250 ML IV (09:08)
[2021-06-03] MEDS: SODIUM CHLORIDE 0.9% FLUSH 10 ML IV ×2 (09:08→20:28)
[2021-06-03] MEDS: SODIUM CHLORIDE 0.9% 250 ML 21 ML IV (09:30)
--- NOTE | 2021-06-03 15:50 | PM.PN.1 ---
Subjective Subjective Interval history: The patient is a 71-year-old female admitted to the hospital with acute respiratory failure secondary to COVID pneumonia. Since admission to the hospital the patient is requiring increasing oxygen. She is now on 5 L of oxygen to keep her saturation at 92% or above. She has a mild nonproductive cough. She denies any nausea vomiting or diarrhea. Overall she feels like she is making some improvement Exam Vital Signs (past 8 hours): - 06/03/21 08:00 06/03/21 10:18 06/03/21 12:00 Temperature 97.6 F 97.5 F L Pulse Rate 52 L 51 L 56 L Respiratory Rate 19 20 19 Blood Pressure 143/63 H 159/67 H Pulse Oximetry 91 92 92 06/03/21 13:54 Temperature Pulse Rate 53 L Respiratory Rate 18 Blood Pressure Pulse Oximetry 95 Oxygen Delivery Method Nasal Cannula Oxygen Flow Rate 4 Narrative Exam Narrative: Pleasant female sitting in a chair in no obvious distress She is on 5 L of oxygen Chest Other: Lungs: Decreased breath sounds with scattered crackles Cardio Other: Cardiac exam: Regular rate rhythm normal S1-S2 with a 2/6 systolic ejection murmur GI Other: Abdomen: Soft nontender nondistended Extrem Other: Extremities: No edema Objective Labs Result Diagrams: 06/03/21 06:43 06/03/21 06:43 Labs: Laboratory Results - last 24 hr 06/03/21 06/03/21 06:43 06:43 WBC 8.5 RBC 3.81 L Hgb 11.0 L Hct 32.7 L MCV 86.0 MCH 28.8 MCHC 33.5 RDW 13.8 Plt Count 270 Sodium 131 L Potassium 3.6 Chloride 102 Carbon Dioxide 21 L BUN 25 H Creatinine 0.82 Estimated GFR > 60.0 BUN/Creatinine Ratio 30.5 H Glucose 402 H Calcium 8.2 L Total Bilirubin 0.5 Conjugated Bilirubin 0.0 Unconjugated Bilirubin 0.2 AST 57 H ALT 37 H Alkaline Phosphatase 69 Total Protein 6.2 L Albumin 3.0 L Globulin 3.2 Albumin/Globulin Ratio 0.9 L PFSH Medical History (Updated 06/02/21 @ 04:22 by BELGICA Connell) Diabetes type 2, uncontrolled Essential hypertension Obesity Vaccination hesitancy by patient Surgical History (Updated 06/02/21 @ 04:21 by BELGICA Connell) Hx of cholecystectomy Hx of tubal ligation Family History Mother Diabetes mellitus Father Diabetes mellitus Throat cancer Colon cancer Social History household members: family and children Smoking Status: Never smoker alcohol intake: never Assessment & Plan Assessment & Plan narrative: Impression 1. 71-year-old female admitted to the hospital with acute hypoxic respiratory failure -persistent hypoxemia related to COVID 19 pneumonia -will continue Decadron and remdesivir -will continue oxygen with a goal to titrate oxygen down as she tolerates -continue DVT prophylaxis 2. Type 2 diabetes, poorly controlled -Decadron likely exacerbating her hyperglycemia -will increase both her basal and bolus insulin 3. Diarrhea now resolved 40. Essential hypertension -will increase amlodipine to 10 mg daily I have obtained and utilized all available immediate resources to update obtain and review the patient's current medications COVID-19 COVID-19 status: Positive Quality VTE Deep Vein Thrombosis/Pulmonary Embolism Present on Admission: No
[2021-06-03] MEDS: INSULIN GLARGINE 100 UNIT/ML 3ML PEN 50 UNIT SUBCUT (20:26)
[2021-06-04] VITALS (11 sets, daily range): BP systolic 126–163; BP diastolic 55–72; PULSE 46–64; RESP 18–23; TEMP 36–37.1; O2SAT 89–97
[2021-06-04] MEDS: ENOXAPARIN 40 MG/0.4 ML SYRINGE SUBCUT (08:17)
[2021-06-04] MEDS: REMDESIVIR 100 MG in SODIUM CHLORIDE 0.9% 230 ML 250 ML IV (08:17)
[2021-06-04] MEDS: AMLODIPINE 5 MG TABLET PO (08:17)
[2021-06-04] MEDS: DEXAMETHASONE 10 MG/ML VIAL 6 MG IV (08:17)
[2021-06-04] MEDS: SODIUM CHLORIDE 0.9% FLUSH 10 ML IV ×2 (08:17→20:20)
[2021-06-04] MEDS: LOSARTAN 50 MG TABLET 100 MG PO (08:18)
[2021-06-04] MEDS: INSULIN GLARGINE 100 UNIT/ML 3ML PEN 50 UNIT SUBCUT ×2 (08:18→20:21)
[2021-06-04] MEDS: INSULIN LISPRO 100 UNIT/ML 3ML VIAL SUBCUT ×3 (08:33→17:08)
--- NOTE | 2021-06-04 13:53 | PC.NURSE ---
PT ALERT/ORIENTED AND DENYING ANY DISCOMFORT- LUNGS DECREASED BILAT WITH SOME COARSENESS AT BILAT BASES- ABLE TO WEAN FROM 5L NC TO 2L WITH SPO2 94-95% ROOM AIR WAS 86%- PT FEELING MUCH BETTER AND IS ENCOURAGED BY LESSENED O2 NEEDS- SBA TO BATHROOM - HOPEFUL TO DISCHARGE SOON, REMAINS SALINE LOCKED WITH NO PAIN RX AND REMDESIVIR/DEXAMETHASONE CONTINUED- PTCONTINUES WITH SB/SR PER TELE
--- NOTE | 2021-06-04 15:51 | P.PN_ITS ---
Subjective Subjective Interval history: Patient with acute hypoxic respiratory failure. She feels significantly improved today. She reports her appetite is better and she has no diarrhea. She does have a minimally productive cough. She continues to desaturate on room air, but has been able to have her oxygen tapered from 5 liters to 2 liters of oxygen Exam Vital Signs (past 8 hours): - 06/04/21 08:43 06/04/21 08:50 06/04/21 12:22 Temperature 97.8 F 97.6 F Pulse Rate 58 L 56 L 56 L Respiratory Rate 18 20 18 Blood Pressure 163/66 H 127/59 L Pulse Oximetry 95 92 90 L 06/04/21 12:50 Temperature 96.8 F L Pulse Rate 64 Respiratory Rate 18 Blood Pressure 127/59 L Pulse Oximetry 92 Oxygen Delivery Method Nasal Cannula Oxygen Flow Rate 2 Narrative Exam Narrative: pleasant female in no acute distress Chest Other: decreased breath sounds with scattered crackles bilaterally Cardio Other: RRR nl Sl S2 2/6 IFEOMA GI Other: Abd: soft/ non tender non distended Extrem Other: No edema Objective Labs Result Diagrams: 06/03/21 06:43 06/03/21 06:43 [facility] Medical History (Updated 06/02/21 @ 04:22 by BELGICA Connell) Diabetes type 2, uncontrolled Essential hypertension Obesity Vaccination hesitancy by patient Surgical History (Updated 06/02/21 @ 04:21 by BELGICA Connell) Hx of cholecystectomy Hx of tubal ligation Family History Mother Diabetes mellitus Father Diabetes mellitus Throat cancer Colon cancer Social History household members: family and children Smoking Status: Never smoker alcohol intake: never Assessment & Plan Assessment & Plan narrative: 71-year-old female admitted to the hospital with acute hypoxic respiratory failure -persistent hypoxemia related to COVID 19 pneumonia -will continue Decadron and remdesivir -will continue oxygen with a goal to titrate oxygen down as she tolerates, patient now on 2 liters of oxygen, if she can taper off she may be able to discharge this weekend. -patient can discharge on 2 lites of oxygen, approved by Medicare for Covid- 19 for up to 2 months. If she continues to make good progress possible discharge home with oxygen tomorrow -continue DVT prophylaxis 2. Type 2 diabetes, poorly controlled -Decadron likely exacerbating her hyperglycemia -will increase both her basal and bolus insulin 3. Diarrhea now resolved 4.. Essential hypertension -will increase amlodipine to 10 mg daily -given diabetes, will add low dose VEENA-I 5. Hyponatremia -likely secondary to Covid-19 pneumonia -will follow, as her appetite is improving no fluid restriction for now Quality VTE Deep Vein Thrombosis/Pulmonary Embolism Present on Admission: No
--- NOTE | 2021-06-04 21:51 | PC.NURSE ---
Patient up in the chair most of the shift. Tolerated 2L o2 well w/ sats in the mid 90s. Up to the bathroom with SBA, gait was steady. Patient has been A&O, calm and cooperative.
[2021-06-05] VITALS (8 sets, daily range): BP systolic 123–157; BP diastolic 65–72; PULSE 49–65; RESP 16–20; TEMP 36–36.7; O2SAT 91–94
[2021-06-05] MEDS: INSULIN GLARGINE 100 UNIT/ML 3ML PEN 50 UNIT SUBCUT (09:36)
[2021-06-05] MEDS: INSULIN LISPRO 100 UNIT/ML 3ML VIAL SUBCUT ×3 (09:36→16:48)
[2021-06-05] MEDS: ENOXAPARIN 40 MG/0.4 ML SYRINGE SUBCUT (09:39)
[2021-06-05] MEDS: LOSARTAN 50 MG TABLET 100 MG PO (09:39)
[2021-06-05] MEDS: AMLODIPINE 5 MG TABLET 10 MG PO (09:39)
[2021-06-05] MEDS: SODIUM CHLORIDE 0.9% FLUSH 10 ML IV ×2 (09:40→20:35)
[2021-06-05] MEDS: REMDESIVIR 100 MG in SODIUM CHLORIDE 0.9% 230 ML 250 ML IV (09:40)
[2021-06-05] MEDS: DEXAMETHASONE 10 MG/ML VIAL 6 MG IV (09:40)
--- NOTE | 2021-06-05 11:04 | CM.DPNOTE ---
DCP: continued: Case received and discussed in Team Rounds. Pt is currently tolerating the 2 L supplemental oxygen via nasal cannula and has been up with stand by assist and nursing staff to bathroom. Spoke with pt's daughter Meghan Olguin by phone: [phone]. She is listed as DPOA but seems unsure of this saying only that I'm the one who takes care of things for my mother. She does confirm that pt has a PCP: Kathy Franklin at a clinic in [place]. Asked about vaccine status: she says she is not vaccinated and currently has no plans to do so. She says she works from home. She does says she has asked her own doctor is she should get tested and been told only if I have symptoms She is anticipating that her mother will be coming home at d/c and says she understands that this may even be this weekend. DCP team will be following.
--- NOTE | 2021-06-05 16:16 | PM.PN.1 ---
Subjective Subjective Date Patient Seen: 06/05/21 Time Patient Seen: 16:17 Interval history: The patient is a 71-year-old female admitted to the hospital with acute respiratory failure secondary to COVID pneumonia. She has begun to improve recently, down to 2L via NC today. Still with dyspnea on exertion and diarrhea, though diarrhea is improving. Exam Vital Signs (past 8 hours): - 06/05/21 08:30 06/05/21 08:53 06/05/21 11:54 Temperature 97.4 F L 96.8 F L Pulse Rate 65 51 L 60 Respiratory Rate 20 16 16 Blood Pressure 147/67 H 123/65 Pulse Oximetry 92 93 92 Oxygen Delivery Method Nasal Cannula Oxygen Flow Rate 2 Narrative Exam Narrative: Gen: Alert, oriented, obese 71 y.o. female, sleeping HEENT: normocephalic, atraumatic, conjunctiva clear, sclera non-icteric, oral mucosa pink and moist Neck: supple, full ROM, no JVD, trachea is midline Resp: Mildly labored breathing when speaking, Lungs CTA, CV: RRR, no murmur or rubs Abd: soft, non-tender, normoactive BTs Skin: no lesions or rashes, dry and intact Neuro: Alert and oriented X 4 w/no focal deficits. Speech clear and coherent. Extremities: moves all 4 extremities, is ambulatory, negative Jeramie?s sign Psyche: normal mood and affect. Objective Labs Result Diagrams: 06/03/21 06:43 06/03/21 06:43 [facility] Medical History Diabetes type 2, uncontrolled Essential hypertension Obesity Vaccination hesitancy by patient Surgical History Hx of cholecystectomy Hx of tubal ligation Family History Mother Diabetes mellitus Father Diabetes mellitus Throat cancer Colon cancer Social History household members: family and children Smoking Status: Never smoker alcohol intake: never Assessment & Plan Assessment & Plan narrative: 71-year-old female admitted to the hospital with acute hypoxic respiratory failure secondary to COVID 19 pneumonia. 1. Acute respiratory failure with hypoxia due to COVID 19 pneumonia. -persistent hypoxemia related to COVID 19 pneumonia -will continue Decadron and remdesivir -will continue oxygen with a goal to titrate oxygen down as she tolerates, patient now on 2 liters of oxygen, if she can taper off she may be able to discharge this weekend. -continue DVT prophylaxis 2. Type 2 diabetes, poorly controlled -Decadron likely exacerbating her hyperglycemia -will increase basal to 60 U BID. Continue sliding scale. Consider meal time dosing. 3. Diarrhea now improved, secondary to COVID 19. 4.. Essential hypertension -will increase amlodipine to 10 mg daily -given diabetes, added low dose VEENA-I 5. Hyponatremia -likely secondary to Covid-19 pneumonia / possible due to fluid loss given diarrhea. -will follow, as her appetite is improving no fluid restriction for now Quality VTE Deep Vein Thrombosis/Pulmonary Embolism Present on Admission: No
[2021-06-05] MEDS: INSULIN GLARGINE 100 UNIT/ML 3ML PEN 60 UNIT SUBCUT (20:34)
[2021-06-06] VITALS: BP 149/70; PULSE 54; RESP 22; TEMP 36.4; O2SAT 91
[2021-06-06 04:00] VITALS: PULSE 48; O2SAT 95
[2021-06-06 05:10] LABS: Blood Urea Nitrogen 26 mg/dL (7-17); Calcium 8.6 mg/dL (8.4-10.2); Carbon Dioxide 26 mmol/L (22-32); Chloride 108 mmol/L (98-107); Estimated Glomerular Filt Rate > 60.0 mL/min (>60); Glucose 270 mg/dL (80-110); HEMOLYSIS < 15 (0-50); Potassium 4.2 mmol/L (3.4-5.1); Sodium 138 mmol/L (137-145)
[2021-06-06 08:00] VITALS: BP 155/70; PULSE 55; RESP 18; TEMP 35.9; O2SAT 93
[2021-06-06] MEDS: INSULIN GLARGINE 100 UNIT/ML 3ML PEN 60 UNIT SUBCUT ×2 (09:33→21:06)
[2021-06-06] MEDS: INSULIN LISPRO 100 UNIT/ML 3ML VIAL SUBCUT ×3 (09:36→17:02)
[2021-06-06] MEDS: DEXAMETHASONE 10 MG/ML VIAL 6 MG IV (09:40)
[2021-06-06] MEDS: SODIUM CHLORIDE 0.9% FLUSH 10 ML IV (09:41)
[2021-06-06] MEDS: LOSARTAN 50 MG TABLET 100 MG PO (09:41)
[2021-06-06] MEDS: ENOXAPARIN 40 MG/0.4 ML SYRINGE SUBCUT (09:41)
[2021-06-06] MEDS: AMLODIPINE 5 MG TABLET 10 MG PO (09:41)
[2021-06-06] MEDS: REMDESIVIR 100 MG in SODIUM CHLORIDE 0.9% 230 ML 150 ML IV (09:50)
[2021-06-06 12:00] VITALS: BP 144/69; PULSE 60; RESP 18; TEMP 36.2; O2SAT 91
--- NOTE | 2021-06-06 13:38 | P.PN_ITS ---
Subjective Subjective Date Patient Seen: 06/06/21 Time Patient Seen: 13:38 Interval history: The patient is a 71-year-old female admitted to the hospital with acute respiratory failure secondary to COVID pneumonia. She has begun to improve recently, down to mainly requiring O2 with exertion today. Diarrhea has improved today. She is feeling stronger. Exam Vital Signs (past 8 hours): - 06/06/21 08:00 06/06/21 12:00 Temperature 96.6 F L 97.1 F L Pulse Rate 55 L 60 Respiratory Rate 18 18 Blood Pressure 155/70 H 144/69 H Pulse Oximetry 93 91 Oxygen Delivery Method Room Air Oxygen Flow Rate 0 Narrative Exam Narrative: Gen: Alert, oriented, obese 71 y.o. female, s leeping HEENT: normocephalic, atraumatic, conjunctiva clear, sclera non-icteric, oral mucosa pink and moist Neck: supple, full ROM, no JVD, trachea is midline Resp: Mildly labored breathing when ambulating, Lungs CTA, CV: RRR, no murmur or rubs Abd: soft, non-tender, normoactive BTs Skin: no lesions or rashes, dry and intact Neuro: Alert and oriented X 4 w/no focal deficits. Speech clear and coherent. Extremities: moves all 4 extremities, is ambulatory, negative Jeramie?s sign Psyche: normal mood and affect. Objective Labs Result Diagrams: 06/03/21 06:43 06/06/21 04:43 Labs: Laboratory Results - last 24 hr 06/06/21 04:43 Sodium 138 Potassium 4.2 Chloride 108 H Carbon Dioxide 26 BUN 26 H Creatinine 0.84 Estimated GFR > 60.0 BUN/Creatinine Ratio 31.0 H Glucose 270 H D Calcium 8.6 PFSH Medical History Diabetes type 2, uncontrolled Essential hypertension Obesity Vaccination hesitancy by patient Surgical History Hx of cholecystectomy Hx of tubal ligation Family History Mother Diabetes mellitus Father Diabetes mellitus Throat cancer Colon cancer Social History household members: family and children Smoking Status: Never smoker alcohol intake: never Assessment & Plan Assessment & Plan narrative: 71-year-old female admitted to the hospital with acute hypoxic respiratory failure secondary to COVID 19 pneumonia. 1. Acute respiratory failure with hypoxia due to COVID 19 pneumonia. -persistent hypoxemia related to COVID 19 pneumonia -will continue Decadron and remdesivir, today is day 5 of therapy. -will continue oxygen with a goal to titrate oxygen down as she tolerates, patient now improving and requiring O2 with exertion still. If able to ambulate without can discontinue medications and discharge home. -continue DVT prophylaxis 2. Type 2 diabetes, poorly controlled -Decadron likely exacerbating her hyperglycemia -increased basal to 60 U BID with improvement today. Continue sliding scale. Consider meal time dosing. 3. Diarrhea now improved, secondary to COVID 19. 4.. Essential hypertension -increased amlodipine to 10 mg daily -given diabetes, added low dose VEENA-I 5. Hyponatremia, resolved -likely secondary to Covid-19 pneumonia / possible due to fluid loss given diarrhea. Now resolved. Code: DNR Dispo: possible discharge home as soon as tomorrow if no longer requiring O2. Quality VTE Deep Vein Thrombosis/Pulmonary Embolism Present on Admission: No
[2021-06-06 15:51] VITALS: BP 122/88; PULSE 64; RESP 18; TEMP 36.6; O2SAT 90
--- NOTE | 2021-06-06 16:54 | PC.NURSE ---
Blood glucose at [address] Ordonez and he will add meal time insulin. Discontinuing tele per Dr. Ordonez as well.
[2021-06-06] MEDS: INSULIN LISPRO 100 UNIT/ML 3ML VIAL 6 UNIT SUBCUT (17:03)
--- NOTE | 2021-06-06 18:12 | PC.NURSE ---
Addendum entered by Twyla Florence R.N. 06/06/21 18:41: Dr. Stevenson aware. OK to leave in previous IV that is slightly leaking. He will discuss plan with patient tomorrow and possible discharge. Original Note: Patient's R forearm IV is leaking. Explained to patient that we will need to start another IV and she was reluctant but agreed. Attempted on L forearm but vein blew. Discussed with patient and she refused to have additional IV placed. I told her if she needs more remdesivir tomorrow, we will need to start another and she wanted to wait until tomorrow.
[2021-06-06 20:00] VITALS: BP 154/70; PULSE 55; RESP 16; TEMP 36.6; O2SAT 91
[2021-06-07 01:50] VITALS: BP 145/69; PULSE 69; RESP 17; TEMP 36.7; O2SAT 90
[2021-06-07 05:07] LABS: BUN Creatinine Ratio 37.7 (6-22); Blood Urea Nitrogen 29 mg/dL (7-17); Carbon Dioxide 24 mmol/L (22-32); Chloride 109 mmol/L (98-107); Estimated Glomerular Filt Rate > 60.0 mL/min (>60); Glucose 225 mg/dL (80-110); HEMOLYSIS < 15 (0-50); Sodium 139 mmol/L (137-145)
[2021-06-07 08:00] VITALS: BP 154/68; PULSE 54; RESP 17; TEMP 36.8; O2SAT 93
[2021-06-07] MEDS: AMLODIPINE 5 MG TABLET 10 MG PO (08:27)
[2021-06-07] MEDS: ENOXAPARIN 40 MG/0.4 ML SYRINGE SUBCUT (08:27)
[2021-06-07] MEDS: INSULIN LISPRO 100 UNIT/ML 3ML VIAL SUBCUT ×2 (08:27→12:51)
[2021-06-07] MEDS: LOSARTAN 50 MG TABLET 100 MG PO (08:27)
[2021-06-07] MEDS: INSULIN GLARGINE 100 UNIT/ML 3ML PEN 60 UNIT SUBCUT (08:28)
[2021-06-07] MEDS: INSULIN LISPRO 100 UNIT/ML 3ML VIAL 6 UNIT SUBCUT ×2 (08:28→12:51)
--- NOTE | 2021-06-07 09:19 | DIET.PN ---
Dietary Progress Note RD Note: 71y diabetic, obese (class 2), unvaccinated covid+ pt on LOS day 5 for cough, diarrhea. Pt tolerating 100% POs, remains on 5L NC. Pt having some issues c BG management with one reading >400, patient started on mealtime insulin per hospitalist. Kitchen to send ONS Ensure Max c lunches to support high protein needs of this patient in bariatric ONS formula.
--- NOTE | 2021-06-07 09:26 | PC.NURSE ---
Addendum entered by Erlinda Vuong R.N. 06/07/21 14:42: pt discharged to home with daughter- ROBERTO, she was set up for home o2 needs at home by ronel SHETH- ALL QUESTIONS ANSWERED TO PT ( AND DAUGHTERS ) SATISFACTION Original Note: PT ALERT/ORIENTED AND COOPERATIVE WITH CARE- IV REMOVED FROM RIGHT [employer] NO LONGER ABLE TO USE- SHE DECLINES AT THIS TIME TO HAVE NEW IV RESTARTED THERE WAS DIFFICULTLY WITH THIS IN PREVIOUS SHIFTS- PT IS HOPEFUL TO GO HOME TODAY SHE HAS BEEN ON ROOM AIR FOR 24 HOURS BUT THERE ARE A FEW DOSES REMAINING OF IV REMDESIVIR/DEXAMETHASONE TO COMPLETE THE COURSE- SHE WILL TAKE TO PROVIDER THIS AM TO DETERMINE HER PLAN OF CARE
--- NOTE | 2021-06-07 10:17 | CM.DPC ---
Addendum entered by Lindy Julio R.N. 06/07/21 13:12: Dr. Ordonez came by the care management's office and indicated that patient will be discharging home with oxygen. Don is working on setting this up, and will have him sign certificate of medical need. Gave nurse, Erlinda, a copy of IMM to go with patient. Original Note: DCP Cont: Discussed patient during team rounds. Patient is on room air upon activity, but during exertion, her oxygen saturations drop. Patient is eager to go home, she may potentially discharge home today, and may need to go on oxygen. Don is working on this for patient. P: DCP to continue to be available for any needs. Plan is home, will have support of daughter. Lindy Julio RN/[employer] Delivery Professional
[2021-06-07 12:00] VITALS: BP 122/59; PULSE 64; RESP 18; TEMP 36.7; O2SAT 92
--- NOTE | 2021-06-07 12:45 | P.DS_ITS ---
History of Present Illness History of Present Illness Date Patient Seen: 06/07/21 Time Patient Seen: 12:45 Chief complaint: cough, diarrhea Narrative: Per BELGICA Connell: Shonda West is a 71 y.o. female with diabetes, hypertension, who initially p resented to the ED for diarrhea. She states it started 6 days ago, started to consume Pepto-Bismal and stated her stool turned black. Per nursing's review of systems with the patient, she told them she had been short of breath prompting a COVID PCR which turned out to be positive. She denes fever, sweats or chills, she does endorse cough and shortness of breath. She states she masks whenever she is outsdide of her home, has not taken the vaccine because she developed shingles and Garcia's Palsey after having an influenza vaccine last year. She does endorse a cough, denies chest pain, abdominal pain, dysurea or constipation. In the ED, she was administered oxygen, and is currently on 3 liters with her oxygen dropping as far as 85% and currently is 92%. Chest xray report indicated Bilateral interstitial opacities in the lung bases and patchy opacities in the left base likely representing atypical pneumonia given clinical history.. On presentation to the ED, her temp was 99.2, currently is 98.7, blood pressure is 156/82, heart rate 80, respiratory rate 22, she weighs 90.2 kg with a BMI of 30.3. WBC is unremarkable, she has a platelet count of 228, shows a normal pH of 7.46 but has a PO2 of 65 and ABG O2 oxygen saturation 94%. Sodium is 135, potassium 4.0, chloride 104, bicarb 20, BUN 20, creatinine 1.06, with a GFR of 51, glucose is 263, hemoglobin A1c is 9.4, calcium 8.4, total creatinine kinase is 552, troponin, procalcitonin, and proBNP are all within normal limits. COVID 19 PCR is positive. Discharge Providers Provider Date of admission: 06/02/21 02:04 Discharge Date: 06/07/21 Consults: 06/02/21 02:20 Consult to Respiratory Therapy Evaluate & Treat Comment: COVID-19 pna Physician Instructions: Evaluate and treat 06/02/21 04:54 Consult to Pharmacy Routine Comment: Losartan dose? Discharge provider: Dominik Ordonez DO Summary Hospital Course Discharge Diagnosis: 1. Acute respiratory failure with hypoxia due to COVID 19 pneumonia. 2. Type 2 diabetes, poorly controlled 3. Diarrhea now improved, secondary to COVID 19. 4.. Essential hypertension 5. Hyponatremia, resolved, present on admission. Hospital Course: This is a 71-year-old female with a hip past medical history of hypertension, and type 2 diabetes who was admitted to the hospital with acute respiratory failure secondary to COVID-19 pneumonia. She required as much as 5 L during her hospital stay. She was treated with 5 days of remdesivir and Decadron therapy. On the day of discharge patient was saturating well on room air at rest, but required 2 L of oxygen with activity. The patient no longer wanted to have an IV, and we discussed possible continuation of remdesivir and Decadron therapy for 5 days, however the patient did not wish to continue these medications given her continued improvement, instead deciding that she would be better to recover at home. The patient was also hyponatremic on admission which improved with IV fluids and was secondary to GI losses from diarrhea secondary to her COVID-19 infection. After initiation of Decadron, her diabetes was also uncontrolled but improved slightly with increases in her basal Lantus therapy. I do recommend that she follow-up with her primary care provider and that she check her blood sugars at home quite frequently so that her insulin may be adjusted as an outpatient after removal of her steroids. Time Spent with Patient Time spent: Greater than 30 minutes Exam Vital Signs (past 8 hours): - 06/07/21 08:00 06/07/21 12:00 Temperature 98.2 F 98.1 F Pulse Rate 54 L 64 Respiratory Rate 17 18 Blood Pressure 154/68 H 122/59 L Pulse Oximetry 93 92 Oxygen Delivery Method Room Air Oxygen Flow Rate 0 Narrative Exam Narrative: Gen: Alert, oriented, obese 71 y.o. female, sitting upright in chair HEENT: normocephalic, atraumatic, conjunctiva clear, sclera non-icteric, oral mucosa pink and moist Neck: supple, full ROM, no JVD, trachea is midline Resp: no respiratory distress, CTA b/l. CV: RRR, no murmur or rubs Abd: soft, non-tender, normoactive BTs Skin: no lesions or rashes, dry and intact Neuro: Alert and oriented X 4 w/no focal deficits. Speech clear and coherent. Extremities: moves all 4 extremities, is ambulatory, negative Jeramie?s sign Psyche: normal mood and affect. Objective Labs Result Diagrams: 06/03/21 06:43 06/07/21 04:42 Labs: Laboratory Results - last 24 hr 06/07/21 04:42 Sodium 139 Potassium 4.0 Chloride 109 H Carbon Dioxide 24 BUN 29 H Creatinine 0.77 Estimated GFR > 60.0 BUN/Creatinine Ratio 37.7 H Glucose 225 H Calcium 9.0 PFSH Medical History Diabetes type 2, uncontrolled Essential hypertension Obesity Vaccination hesitancy by patient Surgical History Hx of cholecystectomy Hx of tubal ligation Family History Mother Diabetes mellitus Father Diabetes mellitus Throat cancer Colon cancer Social History household members: family and children Smoking Status: Never smoker alcohol intake: never Discharge Plan Discharge Plan Patient Disposition: Home Provider Discharge Comment: You were admitted to the hospital with COVID - 19 pnuemonia. You still are requiring some oxygen which was prescribed. Please follow up with your PCP and check blood sugars as you may need adjustments to your insulin routine after the steroid that you received here. Discharge orders & Medications Prescriptions: Continued Lantus Solostar U-100 Insulin 100 unit/mL (3 mL) Insulin Pen 35 unit SUBCUT QAM RF: 0 Lantus Solostar U-100 Insulin 100 unit/mL (3 mL) Insulin Pen 30 unit SUBCUT QPM RF: 0 Humalog U-100 Insulin 100 unit/mL Cartridge 1 sliding scale dose SUBCUT USEASDIRECTD RF: 0 amlodipine 5 mg tablet 5 mg PO DAILY RF: 0 Changed losartan 100 mg tablet 100 mg PO DAILY Qty: 0 RF: 0 Diet/Activity/Treatments Diet: Diet as Tolerated and Carb-consistent/Diabetic Activity: As tolerated Quality VTE Deep Vein Thrombosis/Pulmonary Embolism Present on Admission: No
== END 2021-06-07 14:43 | disposition home or self-care (01) | DRG 177 ==
LOC: ED 06-02 01:48 → ICU 06-02 09:00
PROVIDERS: Internal Medicine; Admitting Provider Nurse Practitioner Family; Emergency Provider Emergency Medicine; Referring Provider Emergency Medicine; Visit Provider Nurse Practitioner Family
DX: U07.1 COVID-19 (principal); J12.82 Pneumonia due to coronavirus disease 2019; J96.01 Acute respiratory failure with hypoxia; R19.7 Diarrhea, unspecified; E11.65 Type 2 diabetes mellitus with hyperglycemia; I10 Essential (primary) hypertension; E66.9 Obesity, unspecified; Z68.38 Body mass index [BMI] 38.0-38.9, adult; Z79.4 Long term (current) use of insulin
CPT/HCPCS: 36415; 36600; 71045; 80048; 80076; 82550; 82553; 82805; 82962; 83036; 83735; 83880; 84145; 84484; 85025; 85027; 87045; 87177; 87493; 87635; 87797; 87899; 94618; 94640; 94762; 99284; 99285; C9803; J1100; J1650; J1815; J7613

== ENCOUNTER → 2021-08-20 10:28 | Outpatient (CLI) | payer OTHER, SELFPAY ==
[2021-06-02 02:32] VITALS: BMI 38.3
[2021-08-20 11:45] LABS: Add Manual Diff / Slide Review NO; Basophils Absolute Auto 0 /uL (0-100); Basophils Percent Auto 0.5 % (0-2); Eosinophils Absolute Auto 300 /uL (0-450); Eosinophils Percent Auto 3.5 % (2-4); Hematocrit 39.3 % (36-46); Hemoglobin 12.7 g/dL (12.0-16.0); Lymphocytes Absolute Auto 2600 /uL (1100-4500); Lymphocytes Percent Auto 31.4 % (25-40); Mean Corpuscular HGB Conc 32.4 % (30-36); Mean Corpuscular Hemoglobin 28.4 PG (26-34); Mean Corpuscular Volume 87.4 fL (80-100); Monocytes Absolute Auto 400 /uL (0-900); Monocytes Percent Auto 5.1 % (3-14); Neutrophils Absolute Auto 4800 /uL (1500-7000); Neutrophils Percent Auto 59.5 % (50-75); Platelet Count 280 X10^3/uL (150-400); Red Blood Cell Count 4.49 X10^6/uL (4.0-5.2); Red Cell Distribution Width 14.8 % (11.6-14.8); White Blood Cell Count 8.1 X10^3/uL (4.5-11.0)
[2021-08-20 11:50] LABS: Hemoglobin A1C% w Est Avg Glu 9.8 % (4.0-6.0)
[2021-08-20 11:59] LABS: BUN Creatinine Ratio 15.1 (6-22); Blood Urea Nitrogen 13 mg/dL (7-17); Calcium 9.6 mg/dL (8.4-10.2); Carbon Dioxide 26 mmol/L (22-32); Chloride 106 mmol/L (98-107); Estimated Glomerular Filt Rate > 60.0 mL/min (>60); Glucose 187 mg/dL (80-110); HEMOLYSIS < 15 (0-50); Potassium 4.9 mmol/L (3.4-5.1); Sodium 139 mmol/L (137-145)
[2021-08-21 09:49] LABS: Fructosamine 369 umol/L (0-285)
== END ==
PROVIDERS: Referring Provider Orthopaedic Surgery; Visit Provider Orthopaedic Surgery
DX: Z01.812 Encounter for preprocedural laboratory examination (principal); R73.9 Hyperglycemia, unspecified
CPT/HCPCS: 36415; 80048; 82985; 83036; 85025

== ENCOUNTER → 2024-01-02 10:28 | Outpatient (CLI) | payer OTHER, SELFPAY ==
[2021-06-02 02:32] VITALS: BMI 38.3
[2024-01-02 12:36] LABS: Add Manual Diff / Slide Review NO; Basophils Absolute Auto 0 /uL (0-100); Basophils Percent Auto 0.4 % (0-2); Eosinophils Absolute Auto 200 /uL (0-450); Hematocrit 39.4 % (36-46); Hemoglobin 13.3 g/dL (12.0-16.0); Lymphocytes Absolute Auto 2600 /uL (1100-4500); Lymphocytes Percent Auto 31.7 % (25-40); Mean Corpuscular HGB Conc 33.9 % (30-36); Mean Corpuscular Hemoglobin 30.3 PG (26-34); Mean Corpuscular Volume 89.2 fL (80-100); Monocytes Absolute Auto 400 /uL (0-900); Monocytes Percent Auto 4.6 % (3-14); Neutrophils Absolute Auto 4900 /uL (1500-7000); Neutrophils Percent Auto 60.3 % (50-75); Platelet Count 285 X10^3/uL (150-400); Red Blood Cell Count 4.41 X10^6/uL (4.0-5.2); White Blood Cell Count 8.1 X10^3/uL (4.5-11.0)
[2024-01-02 12:43] LABS: Hemoglobin A1C% w Est Avg Glu 6.3 % (4.0-6.0)
[2024-01-02 12:57] LABS: BUN Creatinine Ratio 10.8 (6-22); Blood Urea Nitrogen 11 mg/dL (7-17); Calcium 9.1 mg/dL (8.4-10.2); Carbon Dioxide 25 mmol/L (22-32); Chloride 107 mmol/L (98-107); Estimated Glomerular Filt Rate 58 mL/min (>60); Glucose 92 mg/dL (80-110); HEMOLYSIS < 15 (0-50); Potassium 4.9 mmol/L (3.4-5.1); Sodium 141 mmol/L (137-145)
[2024-01-02 13:40] LABS: Appearance Urine UA CLEAR; Bilirubin Urine UA NEGATIVE (NEGATIVE); Color Urine UA YELLOW; Glucose Urine UA NEGATIVE (Negative); Ketones Urine UA NEGATIVE (NEGATIVE); Leukocyte Esterase Urine UA 1+ (NEGATIVE); Nitrite Urine UA NEGATIVE (Negative); Occult Blood Urine UA NEGATIVE (Negative); Protein Urine UA NEGATIVE (Negative); Specific Gravity Urine UA 1.015 (1.000-1.035); Urobilinogen Urine UA 0.2 E.U./dL (0.2)
[2024-01-02 14:02] LABS: Bacteria Urine Moderate (10-30); Culture Indicated Urine Specimen Cultured; RBC Urine None Seen (0-5/HPF); Squamous Epithelial Cell Urine 1-5 /HPF (0-5/HPF); Transitional Epi Cells Urine 1-5/HPF (0-5/HPF); Urine Volume 10mL (spun); WBC Urine 5-10/HPF (0-5/HPF)
== END ==
LOC: LAB 10:32
PROVIDERS: PCP Physician Assistant Medical; Referring Provider Orthopaedic Surgery; Visit Provider Orthopaedic Surgery
DX: Z01.818 Encounter for other preprocedural examination (principal); R73.9 Hyperglycemia, unspecified; Z01.812 Encounter for preprocedural laboratory examination; N39.0 Urinary tract infection, site not specified
CPT/HCPCS: 36415; 80048; 81001; 83036; 85025; 87077; 87086; 87147; 93005

== ENCOUNTER 2024-02-27 07:54 | Day surgery (SDC) | payer OTHER, SELFPAY ==
[2021-06-02 02:32] VITALS: BMI 38.3
[2024-02-26 13:31] VITALS: BMI 39.3
[2024-02-27] VITALS (15 sets, daily range): BP systolic 115–156; BP diastolic 42–63; PULSE 56–85; RESP 12–19; TEMP 35.8–36.8; O2SAT 96–100; BMI 39.3
--- NOTE | 2024-02-27 07:48 | DI.RAD.S_ITS ---
PROCEDURE: XR KNEE RT 1TO2V INDICATIONS: TKA TECHNIQUE: 2 view(s) of the knee acquired. COMPARISON: None. FINDINGS: Bones: Patient is status post knee joint arthroplasty. Hardware components are in expected positions. Visualized bony structures are intact. Soft tissues: Overlying postoperative changes are noted. IMPRESSION: Expected post-operative appearance of a knee arthroplasty. Dictated by: Madelaine Mancilla M.D. on 02/27/2024 at 14:15 Approved by: Madelaine Mancilla M.D. on 02/27/2024 at 14:16
[2024-02-27] MEDS: LACTATED RINGERS 1,000 ML 42 ML IV ×2 (09:03→12:37)
[2024-02-27] MEDS: CELECOXIB 200 MG CAPSULE PO (09:06)
[2024-02-27] MEDS: ACETAMINOPHEN 325 MG TABLET 975 MG PO (09:08)
[2024-02-27] MEDS: VANCOMYCIN 1,000 MG/200 ML PIGGYBACK 200 MG IV (09:39)
--- NOTE | 2024-02-27 10:34 | P.OP_ITS ---
Operative Date/Time/Diagnoses Date of procedure: 02/27/24 Time of procedure: 11:00 Pre-op diagnosis: Severe right knee OA Post-op diagnosis: same Procedure & Clinicians Procedure: Right total knee arthroplasty Same procedure as scheduled: Yes Indications: The patient has had progressively worsening right knee pain with radiographic changes consistent with arthritis. Non-operative management has failed and the patient has requested total knee replacement. The risks, benefits and alternatives to surgery were discussed with the patient prior to proceeding. Risks discussed included, but were not limited to, failure to relieve pain, stiffness, infection, nerve damage, deep venous thrombosis, pulmonary embolism, stroke, coma, heart attack, permanent paralysis and , as well as the potential need for eventual revision of the prosthetic. Surgeon: Kimmy Reyes Cartography/Mapping Technician: Jaylan Wright Anesthesia Type: General, Spinal and Peripheral nerve block Operative Notes Findings: Severe right knee OA, adequate bone, good stability Closure Type: primary Specimen(s): none sent Prosthetic devices, grafts, tissues, transplants, or devices: Reyes and nephew [facility] BCS 2 size 7 femur, size 5 tibia, size 9 poly, 35 x 7- 1/2 mm patella Estimated Blood Loss (mL): 250 Blood products transfused: none Tourniquet time (min): 96 Procedure in detail: The patient was seen in the pre-operative area, where the patient identified the right knee as the operative site and this was marked with my initials. The patient received pre-operative antibiotics, and was taken to the operating room and placed on the operative table in the supine position. After satisfactory anesthesia, a facilities assistant out was performed. The right leg was encircled with a tourniquet about the proximal thigh, and the leg was prepared from the toes to the tourniquet with ChloroPrep in the usual fashion and draped through sterile drapes. The leg was elevated and exsanguinated with Eschmark bandage and the tourniquet inflated to [250] mmHg pressure. A PA was used during the procedure and was essential for intraoperative retraction and safe implantation of the components. The knee was approached through an approximately 18 cm incision centered over the patella and carried into the knee through a medial parapatellar arthrotomy. Portion of the medial and lateral meniscus was resected. Soft tissue was careful ly mobilized around the patella the patella was measured with a caliper. Bone was resected from the patella and the patellar height was reconstituted with up an appropriate sized patellar component. A cover was then placed on the patella. A small amount of additional medial and lateral meniscus was resected. Cori pins were placed for robot assisted navigation. The tibial guide was pinned to the proximal tibia. The knee was metallic meticulously mapped and range of motion stressed and unstressed was determined. A plan was taken and improved. Cori robotic bur was used for the distal femoral cut. It looked like an appropriate distal femoral cut and the cut was made without difficulty. The rotation was assessed and the appropriate size femoral guide was placed on the distal femur and finishing cuts were made. There was no evidence of notching. The anterior, posterior and chamfer cuts were then made. The posterior osteophytes and soft tissues were then removed. The posterior capsule was injected with part of a mixture of 60 ml 0.25% Marcaine mixed with 20 ml Exparel for post operative pain control. The remainder of this mixture was injected into the capsule and subcutaneous tissues during cement curing. The tibia tibial guide was carefully adjusted. Proximal tibial cut was made without difficulty. It looked like an appropriate cut. The patient was placed in extension residual medial and lateral meniscus as well as any residual bone was carefully resected. [No] additional tibia was resected. Hemostasis was achieved especially posteriorly. Additional local was injected into the posterior capsule. The femoral component was trial was placed and the notch was finished. Trial tibial and femoral components were then placed and the knee placed through a range of motion. Range of motion was [0-130], with good stability throughout the range. The trials were then removed, and the tibia was finished. The bone was prepared with pulsatile lavage, and dried with a sponge. Cement was applied and the final prosthetics placed. Excess cement was removed during and after cement curing. A brief Betadine soak was performed. After confirming there was no extruded cement posteriorly, the final tibial insert was placed. The knee was copiously irrigated and the tourniquet deflated. Hemostasis was obtained with the Bovie cautery. The capsule was closed with interrupted # 1 suture. The subcutaneous layer was closed with barbed sutures, and the skin with a running 3-0 V-Lock suture and Surgical glue. An Aquacel Ag dressing was applied and the patient was taken to recovery having tolerated the procedure well. Complications: none Post-operative Condition: stable Disposition: Acute Care Plan for aftercare: The patient will be maintained on a standard total knee replacement protocol with weight bearing as tolerated. The patient will receive aspirin and sequential compression devices for DVT prophylaxis. The patient will be discharged home when safe for the home environment.
--- NOTE | 2024-02-27 10:34 | PM.PREOP ---
Pre-operative Note Interval Note History & Physical reviewed/Exam performed by Physician: Yes Changes to H&P: No
--- NOTE | 2024-02-27 10:51 | SUR.PREOP ---
Block start time [1045] . Monitoring initiated and maintained throughout procedure. Oxygen and medications given per anesthesiologist instructions. Patient remained stable throughout procedure, no adverse reactions noted. Block end time [1050].
[2024-02-27] MEDS: CEFAZOLIN 2 GM/100 ML PREMIX 100 ML IV ×2 (10:55→19:45)
[2024-02-27] MEDS: TRANEXAMIC ACID 1,000 MG VIAL 2000 MG INJ ×2 (11:00→12:55)
--- NOTE | 2024-02-27 11:00 | SUR.OPER ---
Supine on padded OR bed. Pillow under head, arms secured on padded armboards <90 degree abduction. Safety belt across torso. Non-operative leg secured with tape over blanket over lower leg. Operative leg secured in Luis positioner. Foam padded brace at thigh of operative leg.
[2024-02-27] MEDS: BUPIVACAINE LIPOSOME 266 MG/20 ML VIAL INJ (13:06)
[2024-02-27] MEDS: BUPIVACAINE 0.25% (PF) 60 ML, EPINEPHrine 0.3 MG INJ (13:06)
[2024-02-27] MEDS: LACTATED RINGERS 1,000 ML 100 ML IV (15:30)
[2024-02-27] MEDS: OXYCODONE IR 5 MG TABLET PO ×2 (15:51→23:14)
--- NOTE | 2024-02-27 16:45 | PT.IIE ---
Current Diagnoses Unilateral primary osteoarthritis, right knee (02/27/24) Surgery Performed Operation Date: 02/27/24 10:45 Actual Procedures p Total Knee Arthroplasty - Robot(Right) - Kimmy Reyes MD Surgical History (Last Updated 02/26/24 @ 14:09 by Sybil Brady, RN) History of (1975) Hx of appendectomy Hx of bilateral cataract extraction Hx of blepharoplasty Hx of cholecystectomy Hx of colonoscopy (10/06/14) Hx of tubal ligation Medical History (Last Updated 02/26/24 @ 14:16 by Sybil Brady RN) Acid reflux Anesthesia complication Chronic renal insufficiency Diabetes type 2, uncontrolled Diabetic peripheral neuropathy Essential hypertension Gout Hearing loss History of tachycardia HLD (hyperlipidemia) Hx of Garcia's palsy Obesity Osteoarthritis Reactive airway disease Uses self-applied continuous glucose monitoring device Vaccination hesitancy by patient Physical Therapy Inpatient Evaluation/Re-Eval M1 PT/OT-IP Prior Functional Status Start: 02/27/24 17:34 Freq: NEEDED Status: Active Protocol: Document 02/27/24 16:45 AB (Rec: 02/27/24 17:46 AB [id number]) Medical Review Prior Functional Status Medical History Reviewed Yes Communication able to make needs known Mobility and Gait pt stated that she was modified independent with all mobilities and ambulation without AD but occasionally uses a 4WW depending on knee pain and balance Social History Household Members family,children Living Arrangements House Number of Floors (Floors) Two Floors Number of Stairs To Enter/Railing? pt stay son main level of the house 2 steps without rails to hold on to: has post of water heater on L side and fridge on other side Home Environment Standard Height Toilet,Walk in Shower,Built-In Shower Seat Home Equipment Front Wheel Walker,Four Wheel Walker,Straight Cane,Bedside Commode,Shower Seat without Backrest,Hand Held Shower,Grab Bars In Shower Additional Social History Comment has a bed cane that they can put on for pt M2 PT-IP Current Condition Start: 02/27/24 17:34 Freq: NEEDED Status: Active Protocol: Document 02/27/24 16:45 AB (Rec: 02/27/24 17:46 AB [id number]) Physical Therapy Current Condition Current Condition Evaluation Date 02/27/24 Treatment Diagnosis s/p R TKA ; difficulty in walking Onset Date 02/27/24 M3 PT-IP Subjective Start: 02/27/24 17:34 Freq: NEEDED Status: Active Protocol: Document 02/27/24 16:45 AB (Rec: 02/27/24 17:46 AB [id number]) Subjective Physical Therapy Visit Type Type Initial Evaluation Visit Start Time 16:45 Visit Stop Time 17:30 Number of ULTRASOUND SPEC Visits 0 Physical Therapy Visit Comments Patient Comments agreeable to do PT Therapy Pain Assessment Pain When Pain Assessed At Rest Pain Present Pain Present Pain Reported Location right knee Intensity 5 Pain Management Techniques Apply Cold,Distraction, Modification of Treatment,Re- positioning,Timing of Activity with Medications M4 PT-IP Mobility and Gait Start: 02/27/24 17:34 Freq: NEEDED Status: Active Protocol: Document 02/27/24 16:45 AB (Rec: 02/27/24 17:46 AB [id number]) PT-Bed Mobility Assessment Supine to Sit Supine to Sit Standby Assistance Sit to Supine Sit to Supine Standby Assistance PT-Transfer Assessment Sit to and From Stand Sit to and from Stand Minimal Assistance,1 Person Assistance,Use of Upper Extremities Equipment Transfer Assistive Device Gait Belt,Front Wheeled Walker Orthotic/Prosthetic Devices or Brace: No Transfers Transfer Destination Chair Transfer Technique ambulated Transfer Ability Level of Assist Minimal Assistance,1 Person Assistance,Use of Upper Extremities Comments Mobility Comments pt found standing with nurse and NAC. pt sat back on EOB. PT took over pt's care. pt agreed to do PT. family in room. obtained PLOF and home set up from pt and family. post-op folder provided and reviewed contents. educated on HEP. pt completed sit<> supine SBA with max cues for techniques. pt able to sit on EOB SBA. completed sit to stand min A and cues. cued for quads activation on RLE. pt completed ambulation ~ 20 ft using FWW min A and cues. pt sat on the chair. positioned on the chair. call light and table placed within reach. set up dinner for pt. caregiver training set up for tomorrow and daughter stated that she can come in ~ 10 am. Gait Assessment Gait Gait Assistance Required: Minimum Assistance,1 Person Assist Distance (Feet) 20 Able to Maintain Weight Bearing Status Yes During Gait Assistive Devices Assistive Device Gait Belt,Front Wheeled Walker Orthotic/Prosthetic Devices or Brace: No Gait Deviations General Gait Pattern Antalgic,Decreased Stride Length,Decreased Feet Clearance,Step-to Gait Factors Limiting Gait Function Factors Limiting Gait Function Decreased Activity Tolerance, Difficulty Following Directions,Limited Range of Motion,Pain,Poor Balance,Poor Safety Awareness PT-Balance Assessment Sitting Balance and Reactions Static Sitting Balance Ability Good Dynamic Sitting Balance Ability Good Standing Balance and Reactions Static Standing Balance Ability Fair Dynamic Standing Balance Ability Fair Device Used FWW M5 PT-IP Objective Assessments Start: 02/27/24 17:34 Freq: NEEDED Status: Active Protocol: Document 02/27/24 16:45 AB (Rec: 02/27/24 17:46 AB [id number]) Orientation Orientation/Cognition Level of Alertness Alert Orientation Name,Place,Situation Language Function Ability No Deficits Noted Safety Awareness Decreased Safety Awareness Memory Description No Deficits Noted Gross Range of Motion Lower Extremity ROM Impairments R knee flexion: PROM: ~ 70 deg R knee extension: ~ 10 deg less to 0 Strength Lower Extremity Strength Assessment Right Impaired Hip 3+/5 Knee 4-/5 Coordination Assessment Gross Coordination Gross Coordination WNL Sensation Assessment Sensation Gross Sensation WNL Muscle Tone Muscle Tone WNL Yes M6 PT-IP Treatment Start: 02/27/24 17:34 Freq: NEEDED Status: Active Protocol: Document 02/27/24 16:45 AB (Rec: 02/27/24 17:46 AB [id number]) Physical Therapy Treatment Exercises Exercises Heel Slides Education Education Provided Precautions,Weight Bearing Status,Post-Op Packet,Safety M7 PT-IP Assessment and Plan Start: 02/27/24 17:34 Freq: NEEDED Status: Active Protocol: Document 02/27/24 16:45 AB (Rec: 02/27/24 17:46 AB [id number]) PT Summary Assessment and Plan Potential Rehabilitation Potential Fair Status of Condition at Evaluation Evolving Summary Impairments Pain,ROM,Strength,Balance, Coordination,Sensation,Tone, Cognition,Bed Mobility, Transfers,Gait,Activity Tolerance Assessment Summary pt is a 73 y/o F s/p R TKA POD 0. pt is WBAT on RLE. pt requiring SBA for bed mobility but with cues for techniques, min A for transfers and ambulation using FWW and cues for safety and R quads activation. pt will likely progress during hospital stay. pt plans to go home and pt's daughter will be assisting pt at home. Caregiver training set up for tomorrow at 10 am. pt also has to complete stair training prior to d/c as pt has 2 steps without rails to enter the house. pt has outpt PT set up. will continue to assess progress. Goals Bed Mobility Goal Independent Transfer Goal Independent,Front Wheeled Walker Gait Goal Independent,Front Wheel Walker Gait Distance 200 Other Goals up/down 2 steps using SPC/FISHING HAND CGA Days to Meet Goals 5 Frequency of Treatment Frequency Of Treatment Twice a Day Treatment Plan Physical Therapy Treatment Plan Bed Mobility Training,Transfer Training,Gait Training, Therapeutic Exercise,Balance Retraining,Post Op Education, Discharge Planning,Hot or Cold Pack,Neuromuscular Re-ed, Coordination Retraining,Manual Therapy Weight Bearing Status Weight Bearing Status Weight Bear as Tolerated Allowed Weight Bearing Amount (enter % RLE WBAT or #) (%) Recommendations To Nursing Amount of Assist Needed 1 Person Assist Discharge Recommendations PT Discharge Recommendations Home with Assistance, Outpatient PT Transportation Needs at Discharge Private Vehicle
--- NOTE | 2024-02-27 17:06 | PC.NURSE ---
Patient arrives to room 212 this afternoon at approximately 1430 she is originally very lethargic and not able to keep her eyes open more than a question or two. VSS, afebrile on RA. BG 94 at 1600. She reports numbness and tingling to B feet and BLE's initially. She awakens and is very alert at about 1600 and requests to get out of bed. Sensation to bilateral feet almost back to normal, noted greater weakness to R side with foot strength. Patient is dangled at edge of bed and PT is able to assisst and evaluate patient from there. Daughter at bedside, very supportive. Oriented to room, SCD's on, bed alarm, call light in reach, IVF LR at 100 ml/hr, admission assessment completed, continuous monitoring.
[2024-02-27] MEDS: ACETAMINOPHEN 325 MG TABLET 650 MG PO (17:55)
[2024-02-27] MEDS: DOCUSATE 100 MG CAPSULE PO (21:24)
[2024-02-27] MEDS: INSULIN GLARGINE 100 UNIT/ML 3ML PEN 30 UNIT SUBCUT (21:24)
[2024-02-27] MEDS: LOSARTAN 50 MG TABLET 100 MG PO (21:25)
[2024-02-28] VITALS: BP 130/53; PULSE 65; RESP 18; TEMP 36.1; O2SAT 97
[2024-02-28] MEDS: LACTATED RINGERS 1,000 ML 100 ML IV (01:17)
--- NOTE | 2024-02-28 02:19 | PC.NURSE ---
Patient is alert and oriented. Breath sounds CTA with RA sat of 97%. HRR w/elevated BP of 151/49 but on recheck at 0000 was 130/53 after receiving Losartan at bedtime. Denies nausea. BT hypoactive and has not yet passed flatus. Is voiding without dysuria. Is able to turn herself in bed. Up to bathroom with walker and 1 assist. Is weak in right LE, has some tingling in toes of right foot and is unable to lift leg off bed. Aquacel dressing covered with patrice wrap to right knee is CDI. Did complain of 6/10 pain and was medicated at 2314 with oxycodone with pain decreasing to 2/10. Is wearing bilateral calf SCD's. HS ASA held as patient has recorded allergy so will check with MD/PA in the morning. CBG was 161 and would only take 20 units of Lantus insulin at bedtime as that is her normal dose at home. Fall risk score is high and bed alarm is activated.
[2024-02-28] MEDS: OXYCODONE IR 10 MG TABLET PO (03:49)
[2024-02-28 04:00] VITALS: BP 124/74; PULSE 70; RESP 16; TEMP 36.2; O2SAT 95
[2024-02-28] MEDS: CEFAZOLIN 2 GM/100 ML PREMIX 100 ML IV (04:23)
[2024-02-28] MEDS: IBUPROFEN 400 MG TABLET PO (05:27)
[2024-02-28 06:02] LABS: Hematocrit 33.1 % (36-46); Hemoglobin 11.2 g/dL (12.0-16.0)
--- NOTE | 2024-02-28 07:58 | P.DS_ITS ---
History of Present Illness History of Present Illness Chief complaint: Right Total Knee Arthroplasty - Robot Narrative: Shonda is a pleasent 73 year old female who is POD#1 s/p right total knee arthroplasty by Dr. Reyes. She reports she is doing well today, she does admit to being in severe pain this morning but has felt better since getting up and walking around her room a bit. She worked with PT yesterday with good results and has been able to get up and ambulate to the bathroom on her own since then, urinating without issue. She states she feels comfortable discharging to home with her daughter today. Patient has her postop PT appointments set up with our [address] [place] [address] office. Has walker and her post-op pain medications at home already. Denies fever, chills, chest pain, SOB, nausea, vomiting. Using her incentive spirometeter with good improvement. Operative Date/Time/Diagnoses Date of procedure: 02/27/24 Time of procedure: 11:00 Pre-op diagnosis: Severe right knee OA Post-op diagnosis: same Procedure & Clinicians Procedure: Right total knee arthroplasty Same procedure as scheduled: Yes Indications: The patient has had progressively worsening right knee pain with radiographic changes consistent with arthritis. Non-operative management has failed and the patient has requested total knee replacement. The risks, benefits and alternatives to surgery were discussed with the patient prior to proceeding. Risks discussed included, but were not limited to, failure to relieve pain, stiffness, infection, nerve damage, deep venous thrombosis, pulmonary embolism, stroke, coma, heart attack, permanent paralysis and , as well as the potential need for eventual revision of the prosthetic. Surgeon: Kimmy Reyes Clinical Medical Assistant: Jaylan Wright Anesthesia Type: General, Spinal and Peripheral nerve block Discharge Providers Provider Discharge Date: 02/28/24 Primary care physician: Kathy Franklin PA-C Consults: 02/27/24 07:48 Consult to Anesthesiology Routine Comment: Consulting Provider: Anesthesiologist Reason for consultation: Regional block for post operative pain control 02/27/24 14:44 Consult to Discharge Planning Routine Comment: Consult to Occupational Therapy Evaluate & Treat Comment: Physician Instructions: Evaluate and treat Consult to Physical Therapy Evaluate & Treat Comment: Physician Instructions: postop TKA protocol Discharge provider: Sofi Pat PA-C Summary Hospital Course Discharge Diagnosis: severe right knee OA s/p right TKA Hospital Course: Uncomplicated hospital course Exam Vital Signs (past 8 hours): - 02/28/24 00:00 02/28/24 04:00 Temperature 96.9 F L 97.1 F L Pulse Rate 65 70 Respiratory Rate 18 16 Blood Pressure 130/53 L 124/74 Pulse Oximetry 97 95 Oxygen Flow Rate 0 0 Oxygen Delivery Method Room Air Oxygen Flow Rate 0 Narrative Exam Narrative: Sitting in bedside chair comfortably during interview today. Resp Effort & Inspection: normal respiratory effort and able to speak in complete sentences Cardio Rate: regular rate Other: Extremities appear well perfused Brisk capillary refill. Skin Other: Clean and dry Aquacel dressing intact over the right anterior knee. Neuro General: patient alert, patient awake and patient oriented x3 Other: Gross sensation intact throughout bilateral lower extremities. Extrem Other: 5/5 strenghth with DF, PF, EHL of the left foot. 4/5 strength with DF of the right foot, 5/5 right PF, EHL. Calves soft and non-tender bilaterally. SCD''s on and functioning. Psych Appearance: grossly normal Mental Status: mental status grossly normal Speech and Movement: speech and movement normal Objective Labs 02/28/24 05:25 Labs: Laboratory Results - last 24 hr 02/28/24 05:25 Hgb 11.2 L Hct 33.1 L PFSH Medical History (Updated 02/26/24 @ 14:16 by Sybil Brady RN) Anesthesia complication Acid reflux Hx of Garcia's palsy Uses self-applied continuous glucose monitoring device Osteoarthritis Chronic renal insufficiency Reactive airway disease HLD (hyperlipidemia) Gout Diabetic peripheral neuropathy Hearing loss History of tachycardia Vaccination hesitancy by patient Obesity Diabetes type 2, uncontrolled Essential hypertension Surgical History (Updated 02/26/24 @ 14:09 by Sybil Brady RN) Hx of appendectomy Hx of blepharoplasty Hx of bilateral cataract extraction History of (1975) Hx of colonoscopy (10/06/14) Hx of cholecystectomy Hx of tubal ligation Family History Mother Diabetes mellitus Father Diabetes mellitus Throat cancer Colon cancer Social History household members: family and children Smoking Status: Never smoker alcohol intake: former Discharge Assessment & Plan Assessment and Plan Assessment: stable s/p Right TKA Plan of Treatment: 1) Plan to discharge to home today with daughter pending PT evaluation. 2) Continue multimodal pain management with ice to the knee for additional pain control. 3) Patient does have a documented ASA allergy, her reaction is nose bleeds. We will trial ASA post-op and see if patient can tolerate. If she is unable to tolerate, will adjust DVT prophylaxis medications as needed. Plan for ASA b.i.d. for DVT prophylaxis at this time. 4) Start outpatient physical therapy to work on range of motion and mobility 5) Keep dressing intact, clean, dry until 2 week postop appointment. No soaking the incision site in pools or tubs. No topical ointments or creams to the incision site. 5) Follow up at [facility] in 2 weeks for a postop appointment and wound check. All patient's questions were answered, they demonstrates understanding and are in agreement with the plan. Call our office if any questions or concerns arise. Discharge Plan Discharge Plan Patient Disposition: Home Discharge orders & Medications Discharge Orders: Discharge (Order); Ordered 02/28/24 Ordered By: Sofi Pat Prescriptions: New acetaminophen 325 mg Tablet 650 mg PO Q6H PRN (Reason: Fever/Mild Pain (1-3)) Qty: 90 0RF aspirin 81 mg Tablet,Delayed Release (Dr/Ec) 81 mg PO BID Qty: 90 0RF docusate sodium 100 mg Capsule 100 mg PO BID Qty: 30 0RF ibuprofen 400 mg Tablet 400 mg PO Q4H PRN (Reason: Pain, Mild (1-3)) Qty: 90 0RF ondansetron 4 mg Tablet,Disintegrating 4 mg PO Q4HR PRN (Reason: Nausea And Vomiting) Qty: 10 0RF oxycodone 5 mg Tablet 5 mg PO Q4-6H PRN (Reason: Pain, Moderate (4-6)) Qty: 30 0RF Continued Ozempic 2 mg/dose (8 mg/3 mL) Pen Injector 2 mg SUBCUT QWEEK losartan 100 mg tablet 100 mg PO BID Patient Comments: TAKE ONE TABLET BY MOUTH TWICE DAILY FOR BLOOD PRESSURE magnesium 200 mg Tablet 400 mg PO DAILY oxycodone 5 mg tablet 5 mg PO PRN PRN (Reason: Pain, Moderate) Patient Comments: has not started yet insulin glargine [Lantus Solostar U-100 Insulin] 100 unit/mL (3 mL) Insulin Pen 35 unit SUBCUT QAM insulin glargine [Lantus Solostar U-100 Insulin] 100 unit/mL (3 mL) Insulin Pen 30 unit SUBCUT QPM Humalog U-100 Insulin 100 unit/mL Cartridge 1 sliding scale dose SUBCUT USEASDIRECTD Patient Comments: 12 U Rx Instructions: sliding scale per carbs consumed Follow up/Referrals: Sofi Pat PA-C [Advanced Farrowing Worker] - 03/25/24 1:00 pm (03/25 @ 1:00 with Sylvia Pat PA-C @ [address] [place] [address] ) Kathy Franklin PA-C [Primary Care Provider] - Diet/Activity/Treatments Diet: Diet as Tolerated Activity: Weightbearing as tolerated. Work with outpatient PT to improve ability and range of motion. Cold/Heat Therapy: Ice to the knee for additional pain control. Skin/Wound/Dressing Care Report to your healthcare provider any signs of infection, such as:: chills, fever, night sweats, unusual drainage and unusual redness Dressing: Keep dressing intact, clean and dry until 2 week post-op appointment. No soaking the incision site in pools or tubs. No topical ointments or creams to the incision site. Visit Report/Discharge Packet Instructions: DI for Knee Replacement Stand Alone Forms: Patient Portal/API Discharge Data Primary Care Provider: Kathy Franklin Attending Provider: Kimmy Reyes
[2024-02-28 08:57] VITALS: BP 124/74; PULSE 70
[2024-02-28] MEDS: ASPIRIN EC 81 MG TABLET PO (08:57)
[2024-02-28] MEDS: DOCUSATE 100 MG CAPSULE PO (08:57)
[2024-02-28] MEDS: LOSARTAN 50 MG TABLET 100 MG PO (08:57)
[2024-02-28] MEDS: ACETAMINOPHEN 325 MG TABLET 650 MG PO (08:58)
[2024-02-28] MEDS: OXYCODONE IR 5 MG TABLET PO (08:58)
[2024-02-28] MEDS: INSULIN GLARGINE 100 UNIT/ML 3ML PEN 35 UNIT SUBCUT (09:00)
[2024-02-28] MEDS: polyethylene glycoL 3350 17 GM POWD.PACK PO (09:00)
[2024-02-28] MEDS: INSULIN LISPRO 100 UNIT/ML 3ML VIAL SUBCUT ×2 (09:01→11:57)
[2024-02-28 09:35] VITALS: BP 122/70; PULSE 62; RESP 16; TEMP 36.9; O2SAT 96
--- NOTE | 2024-02-28 10:05 | PT.IPTN ---
Current Diagnoses Unilateral primary osteoarthritis, right knee (02/27/24) Surgery Performed Operation Date: 02/27/24 10:45 Actual Procedures p Total Knee Arthroplasty - Robot(Right) - Kimmy Reyes MD Physical Therapy Treatment Note M2 PT-IP Current Condition Start: 02/27/24 17:34 Freq: NEEDED Status: Active Protocol: Document 02/27/24 16:45 AB (Rec: 02/27/24 17:46 AB [id number]) Physical Therapy Current Condition Current Condition Evaluation Date 02/27/24 Treatment Diagnosis s/p R TKA ; difficulty in walking Onset Date 02/27/24 M3 PT-IP Subjective Start: 02/27/24 17:34 Freq: NEEDED Status: Active Protocol: Document 02/28/24 10:05 AB (Rec: 02/28/24 11:42 AB [id number]) Subjective Physical Therapy Visit Type Type Treatment Note Visit Start Time 10:05 Visit Stop Time 10:55 Number of SHANK CUTTER Visits 0 Physical Therapy Visit Comments Patient Comments able to make needs known Therapy Pain Assessment Pain When Pain Assessed At Rest Pain Present Pain Present Pain Reported Location right knee Intensity 4 Pain Behaviors Guarding Pain Management Techniques Apply Cold,Distraction, Modification of Treatment,Re- positioning,Timing of Activity with Medications M4 PT-IP Mobility and Gait Start: 02/27/24 17:34 Freq: NEEDED Status: Active Protocol: Document 02/28/24 10:05 AB (Rec: 02/28/24 11:42 AB [id number]) PT-Bed Mobility Assessment Supine to Sit Supine to Sit Standby Assistance Sit to Supine Sit to Supine Standby Assistance PT-Transfer Assessment Sit to and From Stand Sit to and from Stand Contact Guard Assistance,1 Person Assistance,Use of Upper Extremities Equipment Transfer Assistive Device Gait Belt,Front Wheeled Walker Orthotic/Prosthetic Devices or Brace: No Transfers Transfer Destination Bed,Chair Transfer Technique ambulated Transfer Ability Level of Assist Contact Guard Assistance,1 Person Assistance,Use of Upper Extremities Comments Mobility Comments pt sitting on the chair. daughter in room with pt. BP: 136/40. pt completed heel slides seated prior to mobilizing. educated daughter on how to use safety belt and how to assist pt. daughter was able to put safety belt on . daughter assisted pt with sit to stand and ambulated pt to the chair using FWW CGA. pt completed bed mobiltiy sit<> supine SBA. stair climbing training: educated pt and daughter regarding up/down steps using SPC/pole/DISTRICT MANAGER. pt has 2 steps to enter the house with L side pole on first step and L side edge of door for support on last step. pt completed up platform step using SPC and edge of wall/door (simulating pole/door at home) and completed max A with daughter assisting. pt was able to step down platform step using FWW mod to max A and max cues (simulating last step descending ). pt does not has any other support with descent on first step. educated pt and daughter regarding DISTRICT MANAGER. daughter was able to assist pt max A but due to home set up and space limitation, safety will be an issue. pt ambulated back to the room using FWW with daughter assisting and sat on chair. positioned pt on the chair. stated that she can feel the effect of the oxycodone and she is feeling foggy and sleepy. informed daughter regarding putting a rail and stated that she can ask but pt has an option to get in through the front door using R rail ascending but is ~ 150 ft away but stated that they can drive into the lawn so it can be closer. asked pt if she can do more stair training and pt stated that she will do it in the afternoon. caregiver training set up at ~ 1pm today. Gait Assessment Gait Gait Assistance Required: Contact Guard Assist Distance (Feet) 20 Able to Maintain Weight Bearing Status Yes During Gait Assistive Devices Assistive Device Gait Belt,Front Wheeled Walker Orthotic/Prosthetic Devices or Brace: No Gait Deviations General Gait Pattern Antalgic,Decreased Stride Length,Decreased Feet Clearance,Step-to Gait Factors Limiting Gait Function Factors Limiting Gait Function Decreased Activity Tolerance, Decreased Strength,Difficulty Following Directions,Limited Range of Motion,Pain,Poor Balance,Poor Safety Awareness Stair Climbing Assessment Evaluation Level of Assist On Stairs Moderate Assistance,Maximal Assistance,1 Person Assistance Devices Stair Climbing Assistive Devices Straight Cane Technique/Endurance Stair Climbing Direction Ascend and Descend Stair Climbing Technique Step to Step Number of Steps Climbed 1 Stair Climbing Set # Repetitions (reps) 3 M5 PT-IP Objective Assessments Start: 02/27/24 17:34 Freq: NEEDED Status: Active Protocol: Document 02/27/24 16:45 AB (Rec: 02/27/24 17:46 AB [id number]) Orientation Orientation/Cognition Level of Alertness Alert Orientation Name,Place,Situation Language Function Ability No Deficits Noted Safety Awareness Decreased Safety Awareness Memory Description No Deficits Noted Gross Range of Motion Lower Extremity ROM Impairments R knee flexion: PROM: ~ 70 deg R knee extension: ~ 10 deg less to 0 Strength Lower Extremity Strength Assessment Right Impaired Hip 3+/5 Knee 4-/5 Coordination Assessment Gross Coordination Gross Coordination WNL Sensation Assessment Sensation Gross Sensation WNL Muscle Tone Muscle Tone WNL Yes M6 PT-IP Treatment Start: 02/27/24 17:34 Freq: NEEDED Status: Active Protocol: Document 02/28/24 10:05 AB (Rec: 02/28/24 11:42 AB [id number]) Physical Therapy Treatment Exercises Exercises Heel Slides Education Education Provided Safety M7 PT-IP Assessment and Plan Start: 02/27/24 17:34 Freq: NEEDED Status: Active Protocol: Document 02/28/24 10:05 AB (Rec: 02/28/24 11:42 AB [id number]) PT Summary Assessment and Plan Potential Rehabilitation Potential Fair Summary Impairments Pain,ROM,Strength,Balance, Coordination,Sensation, Cognition,Bed Mobility, Transfers,Gait,Activity Tolerance Progress Towards Goals Slow Progress due to Pain,Slow Progress due to Activity Tolerance Assessment Summary caregiver training conducted and daughter was able to assist pt with transfer and ambulation but more training needed for stair climbing. caregiver training set up at ~ 1pm today. will continue to assess. Goals Bed Mobility Goal Independent Transfer Goal Independent,Front Wheeled Walker Gait Goal Independent,Front Wheel Walker Gait Distance 200 Other Goals up/down 2 steps using SPC/DISTRICT MANAGER CGA Days to Meet Goals 5 Frequency of Treatment Frequency Of Treatment Twice a Day Treatment Plan Physical Therapy Treatment Plan Bed Mobility Training,Transfer Training,Gait Training, Therapeutic Exercise,Balance Retraining,Post Op Education, Discharge Planning,Hot or Cold Pack,Neuromuscular Re-ed, Coordination Retraining,Manual Therapy Weight Bearing Status Weight Bearing Status Weight Bear as Tolerated Allowed Weight Bearing Amount (enter % RLE WBAT or #) (%) Recommendations To Nursing Amount of Assist Needed 1 Person Assist Discharge Recommendations PT Discharge Recommendations Home with Assistance, Outpatient PT Transportation Needs at Discharge Private Vehicle
--- NOTE | 2024-02-28 11:40 | OT.IP.EVAL ---
Current Diagnoses Unilateral primary osteoarthritis, right knee (02/27/24) Surgery Performed Operation Date: 02/27/24 10:45 Actual Procedures p Total Knee Arthroplasty - Robot(Right) - Kimmy Reyes MD Past Medical History (Last Updated 02/26/24 @ 14:16 by Sybil Brady, RN) Acid reflux Anesthesia complication Chronic renal insufficiency Diabetes type 2, uncontrolled Diabetic peripheral neuropathy Essential hypertension Gout Hearing loss History of tachycardia HLD (hyperlipidemia) Hx of Garcia's palsy Obesity Osteoarthritis Reactive airway disease Uses self-applied continuous glucose monitoring device Vaccination hesitancy by patient Surgical History (Last Updated 02/26/24 @ 14:09 by Sybil Brady, RN) History of (1975) Hx of appendectomy Hx of bilateral cataract extraction Hx of blepharoplasty Hx of cholecystectomy Hx of colonoscopy (10/06/14) Hx of tubal ligation Occupational Therapy Inpatient Evaluation/Re-Eval M1 PT/OT-IP Prior Functional Status Start: 02/28/24 12:48 Freq: NEEDED Status: Active Protocol: Document 02/28/24 11:40 [facility] (Rec: 02/28/24 13:00 [facility] [id number]) Medical Review Prior Functional Status Medical History Reviewed Yes Communication able to make needs known Mobility and Gait pt stated that she was modified independent with all mobilities and ambulation without AD but occasionally uses a 4WW depending on knee pain and balance Activities of Daily Living and IADL's Pt able to do ADL . Social History Household Members family,children Living Arrangements House Number of Floors (Floors) Two Floors Number of Stairs To Enter/Railing? pt stay son main level of the house 2 steps without rails to hold on to: has post of water heater on L side and fridge on other side Home Environment Standard Height Toilet,Walk in Shower,Built-In Shower Seat Home Equipment Front Wheel Walker,Four Wheel Walker,Straight Cane,Bedside Commode,Shower Seat without Backrest,Hand Held Shower,Grab Bars In Shower Additional Social History Comment has a bed cane that they can put on for pt M2 OT-IP Current Condition Start: 02/28/24 12:48 Freq: Status: Active Protocol: Document 02/28/24 11:40 [facility] (Rec: 02/28/24 13:00 [facility] [id number]) Occupational Therapy Current Condition Current Condition Evaluation Date 02/28/24 Treatment Diagnosis S/P R TKA Diagnosis Onset Date 02/27/24 M3 OT- IP Subjective and Pain Start: 02/28/24 12:48 Freq: Status: Active Protocol: Document 02/28/24 11:40 [facility] (Rec: 02/28/24 13:00 [facility] [id number]) OT- Subjective Occupational Therapy Visit Type Type Initial Evaluation Visit Start Time 11:40 Visit Stop Time 12:03 Occupational Therapy Visit Comments Patient Comments Pt agreed to get dressed and work with OT. Patient/Caregiver Goals TO go home. OT Pain Assessment Pain When Pain Assessed At Rest Pain Present Pain Present Denied Pain M4 OT- IP ADL's Start: 02/28/24 12:48 Freq: Status: Active Protocol: Document 02/28/24 11:40 [facility] (Rec: 02/28/24 13:00 [facility] [id number]) OT [id number] Comments OT Self-Feeding Comments NO concerns. OT ADL-Grooming Comments OT Grooming Comments NOt performed. OT ADL-Oral Care Comments Oral Care Comments Not performed. OT ADL-Dressing General Eval Upper Body Dressing Ability Independent Lower Body Dressing Ability Moderate Assistance Comments OT Dressing Comments Able to practice use of thread laster and sock aid. Pt will also benefit from getting a long handled shoe horn. Educated pt to be mindful of her knee positioning during ADL needs. Educated to milton the RLE first and take out last. OT ADL-Toileting Comments OT Toileting Comments Pt agreed to wear disposable briefs especially at night and call for assist. OT ADL-Bathing Comments OT Bathing Comments Educated on care of the bandage while showering. M5 OT- IP IADL's Start: 02/28/24 12:48 Freq: Status: Active Protocol: Document 02/28/24 11:40 [facility] (Rec: 02/28/24 13:00 [facility] [id number]) OT-Instrumental Activities of Daily Living Deficits IADL Deficits Identified Deficits Home Safety Awareness Awareness of Need for Assistance at Home Good Awareness Ability to Problem Solve Emergency Able to Problem Solve Situations Home Safety Comments Pt's sister to help as needed. Meal Preparation Meal Preparation Caregiver Provides Assist Tetryl Boiling Tub Operator Tetryl Boiling Tub Operator Caregiver Provides Assist M6 OT- IP Functional Cognition Start: 02/28/24 12:48 Freq: Status: Active Protocol: Document 02/28/24 11:40 [facility] (Rec: 02/28/24 13:00 [facility] [id number]) Cognitive Factors Limiting Selfcare Function Cognitive Ability Level of Alertness Alert Patient Orientation Name,Age,Birthday,Month,Date, Year,Day of Week,Place, Situation Attention Span Ability Capable of Focused Attention, Capable of Sustained Attention Ability to Follow Commands Able to Follow Multi-Step Commands Cognitive Comments Cognitive Assessment Comments Intact OT- Vision and Hearing OT- Hearing Assessment OT- Hearing Assessment WFL OT- Vision Assessment Vision Assessment Comments intact M7 OT- IP Mobility and Balance Start: 02/28/24 12:48 Freq: Status: Active Protocol: Document 02/28/24 11:40 [facility] (Rec: 02/28/24 13:00 [facility] [id number]) OT-Transfer Assessment Sit to and From Stand Sit to and from Stand Standby Assistance Comments Mobility Comments Pt able to come to stand on her own to the FWW to be able to do LB dressing needs. OT- Balance Assessment Sitting Balance and Reactions Static Sitting Balance Ability Normal Dynamic Sitting Balance Ability Good Standing Balance and Reactions Static Standing Balance Ability Good M8 OT- IP Objective Assessments Start: 02/28/24 12:48 Freq: Status: Active Protocol: Document 02/28/24 11:40 [facility] (Rec: 02/28/24 13:00 [facility] [id number]) OT Gross Range of Motion Upper Extremity Range of Motion ROM Impairments WFL for ADL needs. OT Strength Comments Strength Comments WFL for ADL needs. M9 OT- IP Assessment and Plan Start: 02/28/24 12:48 Freq: Status: Active Protocol: Document 02/28/24 11:40 [facility] (Rec: 02/28/24 13:00 [facility] [id number]) OT Summary Assessment and Plan Potential Rehabilitation Potential Excellent Analytic Complexity at Evaluation Low Summary OT Impairments Strength,Balance,Functional Mobility,Bathing Progress Towards Goals Progressing Toward Goals Assessment Summary Pt low complexity and main barriers are will need assist for dressing and showering needs and benefit from getting a sock aid and long handled shoe horn. Pt looking to go home with assist and attend outpt PT. Goals Dressing Goal Independent,Long Handled Shoe Horn,Appraiser,Sock Aid Toileting Goal Independent Bathing Goal Standby Assistance Shower Transfer Goal Standby Assistance Days to Meet Goals 2 Frequency of Treatment Frequency Of Treatment Once a Day Treatment Plan OT Treatment Plan ADL Training,Functional Mobility,Patient/Family Education,Discharge Planning Discharge Recommendations OT Discharge Recommendations Home with Assistance, Outpatient PT Home Equipment Needs long handled shoe horn, sock aid Transportation Needs at Discharge Private Vehicle
--- NOTE | 2024-02-28 11:52 | CM.DANOTE ---
Initial DCP Assessment Note Pt is a 73 yo female, resident of [place], now POD#1 from Rt TKA by Dr Reyes PCP: Kathy Franklin Payer: Yousuf MANRIQUEZ Reviewed chart, pt discussed in multidisciplinary rounds this morning. Therapy has cleared pt for return home w/family to assist and pt has planned for home, DC order from Ortho has already been initiated this morning. No barriers identified at this time to patient's safe discharge home w/family to assist; close outpatient f/u recommended. CM team will plan to follow closely in case any DC needs or concerns arise. YESENIA Sánchez Discharge Planning/Care Management CM Discharge Assessment Start: 02/28/24 11:38 Freq: Status: Active Protocol: Document 02/28/24 11:38 [facility] (Rec: 02/28/24 11:51 [facility] [id number]) Discharge Planning Assessment Assigned Anesthesiology Physician YESENIA Choi DPOA/Assigned Designee Name Meghan Olguin, janice Contact Information [phone] Advance Directives? No Advance Directives on File No History Provided By Patient,Medical Record Prior Living Arrangements House Household Members family,children Type of transporation used prior to Drives own vehicle admit Independent with ADL's Yes: Poor activity tolerance r /t knee pain Is patient alert and oriented? Yes Needs Assistance With Meal Prep,Home Chores / Shopping Patient/Family Preference OP PT Therapy Barriers to Discharge No Discharge Plan Home Transportation Arrangement Dtr can provide transport at d /c Referrals Initiated None needed
--- NOTE | 2024-02-28 12:50 | PT.IPTN ---
Current Diagnoses Unilateral primary osteoarthritis, right knee (02/27/24) Surgery Performed Operation Date: 02/27/24 10:45 Actual Procedures p Total Knee Arthroplasty - Robot(Right) - Kimmy Reyes MD Physical Therapy Treatment Note M2 PT-IP Current Condition Start: 02/27/24 17:34 Freq: NEEDED Status: Discharge Protocol: Document 02/27/24 16:45 AB (Rec: 02/27/24 17:46 AB [id number]) Physical Therapy Current Condition Current Condition Evaluation Date 02/27/24 Treatment Diagnosis s/p R TKA ; difficulty in walking Onset Date 02/27/24 M3 PT-IP Subjective Start: 02/27/24 17:34 Freq: NEEDED Status: Discharge Protocol: Document 02/28/24 12:50 AB (Rec: 02/28/24 14:22 AB [id number]) Subjective Physical Therapy Visit Type Type Treatment Note Visit Start Time 12:50 Visit Stop Time 13:15 Number of ADVANCED DEVELOPER Visits 0 Physical Therapy Visit Comments Patient Comments agreeable to do PT Therapy Pain Assessment Pain When Pain Assessed At Rest Pain Present Pain Present Pain Reported Location right knee Intensity 3 Scale Used Numeric (0 - 10) Pain Management Techniques Distraction,Modification of Treatment,Re-positioning, Timing of Activity with Medications M4 PT-IP Mobility and Gait Start: 02/27/24 17:34 Freq: NEEDED Status: Discharge Protocol: Document 02/28/24 12:50 AB (Rec: 02/28/24 14:22 AB [id number]) PT-Transfer Assessment Sit to and From Stand Sit to and from Stand Contact Guard Assistance,1 Person Assistance,Use of Upper Extremities Equipment Transfer Assistive Device Gait Belt,Front Wheeled Walker Orthotic/Prosthetic Devices or Brace: No Transfers Transfer Destination Toilet Transfer Technique ambulated Transfer Ability Level of Assist Contact Guard Assistance,1 Person Assistance,Use of Upper Extremities Comments Mobility Comments pt sitting on the chair. daughter in room. pt requested to use the toilet. daughter was able to put safety belt on pt. daugther assisted pt with sit to stand from chair CGA and pt ambulated to the toilet using FWW CGA. pt completed toileting needs with daughter assisting pt. pt completed sit to stand from the toilet CGA using grab bar and ambulated towards the sink using FWW CGA . pt was able to maintain standing CGA while completing handwashing. pt ambulated towards the w/c ~ 30 ft using FWW CGA. stair climbing training conducted. educated pt on how to go u/down steps holding on to R rail with B hands. educated daughter on how to assist pt. pt completed up/ down steps using R rail and daughter was able to assist. pt required min to mod A and cues. assisted pt back to her room. Nurse aware. left pt with daughter. Gait Assessment Gait Gait Assistance Required: Contact Guard Assist Distance (Feet) 30 Able to Maintain Weight Bearing Status Yes During Gait Assistive Devices Assistive Device Gait Belt,Front Wheeled Walker Orthotic/Prosthetic Devices or Brace: No Gait Deviations General Gait Pattern Decreased Stride Length, Decreased Feet Clearance,Step- to Gait Factors Limiting Gait Function Factors Limiting Gait Function Decreased Activity Tolerance, Difficulty Following Directions,Limited Range of Motion,Pain,Poor Balance,Poor Safety Awareness Stair Climbing Assessment Evaluation Level of Assist On Stairs Minimal Assistance,Moderate Assistance Devices Stair Climbing Assistive Devices Right Railing Technique/Endurance Stair Climbing Direction Ascend and Descend Stair Climbing Technique Step to Step Number of Steps Climbed 3 Stair Climbing Set # Repetitions (reps) 1 M5 PT-IP Objective Assessments Start: 02/27/24 17:34 Freq: NEEDED Status: Discharge Protocol: Document 02/27/24 16:45 AB (Rec: 02/27/24 17:46 AB [id number]) Orientation Orientation/Cognition Level of Alertness Alert Orientation Name,Place,Situation Language Function Ability No Deficits Noted Safety Awareness Decreased Safety Awareness Memory Description No Deficits Noted Gross Range of Motion Lower Extremity ROM Impairments R knee flexion: PROM: ~ 70 deg R knee extension: ~ 10 deg less to 0 Strength Lower Extremity Strength Assessment Right Impaired Hip 3+/5 Knee 4-/5 Coordination Assessment Gross Coordination Gross Coordination WNL Sensation Assessment Sensation Gross Sensation WNL Muscle Tone Muscle Tone WNL Yes M6 PT-IP Treatment Start: 02/27/24 17:34 Freq: NEEDED Status: Discharge Protocol: Document 02/28/24 12:50 AB (Rec: 02/28/24 14:22 AB [id number]) Physical Therapy Treatment Education Education Provided Safety M7 PT-IP Assessment and Plan Start: 02/27/24 17:34 Freq: NEEDED Status: Discharge Protocol: Document 02/28/24 12:50 AB (Rec: 02/28/24 14:22 AB [id number]) PT Summary Assessment and Plan Potential Rehabilitation Potential Good Summary Impairments Pain,ROM,Strength,Balance, Cognition,Bed Mobility, Transfers,Gait,Activity Tolerance Progress Towards Goals Progressing Toward Goals Assessment Summary caregiver training completed and daughter was able to assist pt with transfers, ambulation and stair climbing. pt plans to go home today. pt has outpt PT set up. pt may go home when medically stable . Goals Bed Mobility Goal Independent Transfer Goal Independent,Front Wheeled Walker Gait Goal Independent,Front Wheel Walker Gait Distance 200 Other Goals up/down 2 steps using SPC/PLACE CHANGE ROOF BOLTER CGA Days to Meet Goals 5 Frequency of Treatment Frequency Of Treatment Twice a Day Treatment Plan Physical Therapy Treatment Plan Bed Mobility Training,Transfer Training,Gait Training, Therapeutic Exercise,Balance Retraining,Post Op Education, Discharge Planning,Hot or Cold Pack,Neuromuscular Re-ed, Coordination Retraining,Manual Therapy Weight Bearing Status Weight Bearing Status Weight Bear as Tolerated Allowed Weight Bearing Amount (enter % RLE WBAT or #) (%) Discharge Recommendations PT Discharge Recommendations Home with Assistance, Outpatient PT Transportation Needs at Discharge Private Vehicle
== END 2024-02-28 13:47 | disposition home or self-care (01) ==
LOC: OR 08:03 → AC 13:42
PROVIDERS: PCP Physician Assistant Medical; Referring Provider Orthopaedic Surgery; Visit Provider Orthopaedic Surgery
PROC: 0SRC0JZ Replacement of Right Knee Joint with Synthetic Substitute, Open Approach (ICD-10-PCS; CPT 27447; principal; 2024-02-27 10:45)
DX: M17.11 Unilateral primary osteoarthritis, right knee (principal); G89.18 Other acute postprocedural pain
CPT/HCPCS: 27447; 36415; 64450; 73560; 82962; 85014; 85018; 97161; 97165; 97530; 97535; C1776; C9290; J0171; J0690; J1815; J2405; J2704